=== PATIENT | female | born 1965 | race Caucasian/White ===

== ENCOUNTER → 2017-03-02 | Outpatient (CLI) | payer BC ==
[~2017-03-02] MED LIST: AMPH10TA2 PO; BUSP30TA2 PO; DOXY-300 PO; HYDR-5688 PO; TRAZ100T29 PO; VENL150C PO; VENL75CA PO; ZOLP5TAB PO
== END | disposition home or self-care (01) ==
LOC: C.CPL 07:42
PROVIDERS: ATTEND Surgery
DX: L73.2 Hidradenitis suppurativa (principal)

== ENCOUNTER → 2017-03-02 | Outpatient (CLI) | payer BC ==
--- NOTE | 2017-03-05 12:36 | MAMMOGRAPHY REPORT ---
BILATERAL DIGITAL SCREENING MAMMOGRAM TOMOSYNTHESIS WITH CAD: 03/02/2017 CLINICAL HISTORY: Routine screening. TECHNIQUE: Breast tomosynthesis in addition to standard 2D mammography was performed. Current study was also evaluated with a Computer Aided Detection (CAD) system. COMPARISON: No prior exams were available for comparison. BREAST COMPOSITION: There are scattered areas of fibroglandular density in both breasts. FINDINGS: There is a lobulated circumscribed 6 mm mass within the right 12:00 breast as well as anoth er lobulated circumscribed 11 mm mass within the right 11:30 breast, inferior and slightly lateral to the other mass. Recommend ultrasound for further evaluation. These likely represent cysts. The remainder of both breasts demonstrate no suspicious masses, calcifications, or areas of technical architect ural distortion noted. A few other smaller bilateral round/oval circumscribed benign-appearing hunter s are noted on the tomosynthesis images, which likely represent cysts. IMPRESSION: ACR BI-RADS CATEGORY 0: INCOMPLETE EVALUATION: NEED ADDITIONAL IMAGING EVALUATION Two right breast masses, for which additional imaging evaluation is recommended. The patient will be called to schedule an appointment. Approximately 10% of breast cancers are not detected with mammography. A negative mammographic report should not delay biopsy if a clinically suggestive mass is present. Yoly Kirkland M.D. ah/:03/02/2017 15:44:35 Technical Project Manager: Saniya YODER)(Lucrecia), [facility] letter sent: Addl Imaging 0 BI-RADS Code: ACR BI-RADS Category 0: Incomplete Evaluation: Need Additional Imaging Evaluation
== END | disposition home or self-care (01) ==
LOC: C.MAMM 14:50
PROVIDERS: ATTEND Family Medicine
DX: Z12.31 Encounter for screening mammogram for malignant neoplasm of breast (principal); N63 Unspecified lump in breast

== ENCOUNTER → 2017-03-13 | Day surgery (SDC) | payer BC ==
[2017-02-22 08:47] VITALS: Ht 157.5 cm; Wt 81.8 kg
[~2017-03-13] VITALS: Ht 157.5 cm; Wt 81.8 kg
[~2017-03-13] MED LIST changes: +ATROPINE SULFATE 0.1 MG/ML 5ML SYR IV PRN; +BUPIVACAINE/EPINEPHRINE 0.5% MPF 1:200,000 10 ML VIAL ONE; +CEFAZOLIN 2000 MG/60 ML D5W IV SCH; +DEXAMETHASONE SOD INJ 4 MG/ML VIAL ONE; +EpHEDrine SULFATE INJ 50 MG/ML AMP IV PRN; +FENTANYL CITRATE INJ 50 MCG/1 ML 2 ML VIAL IV PRN; +FENTANYL CITRATE INJ 50 MCG/1 ML 2 ML VIAL ONE; +FLUMAZENIL 0.1 MG/1 ML 10 ML VIAL IV PRN; +HYDROCODONE/ACETAMOPHEN 5/325MG TAB ONE; +HYDROCODONE/ACETAMOPHEN 5/325MG TAB PO PRN; +HYDROmorphone INJ 2 MG/ML SYR/VIAL IV PRN; +KETOROLAC TROMETHAMINE 30 MG/ML VIAL ONE; +LABETALOL HCL IV 5 MG/ML 20ML IV PRN; +LACTATED RINGER'S 1000ML 1,000 ML IV SCH; +LIDOCAINE HCL 2% 2 ML VIAL (20MG/ML) ONE; +MEPERIDINE HCL 25 MG/ML CARP IV PRN; +MIDAZOLAM HCL 1 MG/ML 2ML VIAL ONE; +NALOXONE HCL 0.4 MG/1 ML VIAL/CARP IV PRN; +ONDANSETRON INJ 2 MG/ML 2 ML VIAL IV PRN; +ONDANSETRON INJ 2 MG/ML 2 ML VIAL ONE; +PHENYLEPHRINE 100MCG/ML 5ML SYR IV PRN; +PROPOFOL IV EMULSION 10 MG/ML 20 ML VIAL IV ONE; +SODIUM CHLORIDE 0.9% 1000ML 1,000 ML IV SCH
--- NOTE | 2017-03-13 09:59 | History & Physical Bridge Note ---
H&P Re-Evaluation Bridge Note: I have examined the patient, reviewed the History & Physical and in the interval since the performance of the History & Physical I have noted the following changes of clinical significance: No changes noted
--- NOTE | 2017-03-13 10:17 | Discharge Instructions-SurgCtr ---
Discharge Instructions Date of Service Mar 13, 2017. Visit Reason for Visit: Rt Axilla Hidradenitis Suppurative, Rt Groin Cysts Discharge Discharge Diagnosis / Problem: Rt Axilla Hidradenitis Suppurative, Rt Groin Cysts Discharge Goals Goal(s): Decrease discomfort, Improve function Activity Recommendations Activity Limitations: as noted below Lifting Limitations: no more than 10 pounds Exercise/Sports Limitations: until after follow-up appointment May Resume Sexual Activity: after follow-up appointment Shower/Bathe: tomorrow Anesthesia . Post Anesthesia Instructions: If you have had General Anesthesia or IV Sedation: * Do not drive today. * Resume driving when surgeon permits. * Do not make important decisions or sign legal documents today. * Call surgeon for: 1. Temperature elevations greater than 101 degrees F. 2. Uncontrollable pain. 3. Excessive bleeding. 4. Persistent nausea and vomiting. 5. Medication intolerance (nausea, vomiting or rash). * For nausea and vomiting use only clear liquids such as: tea, soda, bouillon until nausea subsides, then gradually increase diet as tolerated. * If you have any concerns or questions, call your surgeon's office. If physician is unavailable and it is an emergency, call 911 or go to the nearest emergency room. . Instructions / Follow-Up Instructions / Follow-Up Please follow-up with Dr. Fischer in the office in 1-2 weeks. Please call the office at [phone] to make an appointment if you do not have one already. Please call the office with any questions or concerns. Diet Recommendations Home Diet: no limitations, resume previous diet Pending Studies Studies pending at discharge: no Medical Emergencies . Who to Call and When: Medical Emergencies: If at any time you feel your situation is an emergency, please call 911 immediately. . Non-Emergent Contact Non-Emergency issues call your: Primary Care Provider, Surgeon Call Non-Emergent contact if: temperature is above 101.5, your pain is not controlled, wound has increased drainage, wound has increased redness . . "Provider Documentation" section prepared by Nayana Shaw. . [place] Drug Monitoring Program Search Results: patient reviewed within database, no issues identified
--- NOTE | 2017-03-13 11:27 | [facility] Operative Report ---
Operative Report Operative Date Mar 13, 2017. Pre-Operative Diagnosis Right Axilla Hidradenitis, Suppurative; Right Groin Cysts Post-Operative Diagnosis Same Procedure(s) Performed Right Axilla Hydradenitis Excision; Right Groin Soft Tissue Cysts (x3) Excision Surgeon Dr. Sonam Fischer Staff Assistant Surgeon(s) Sonam Giron PA-C Estimated Blood Loss 10 cc Findings hydradenitis right axilla soft tissue cysts x 3 right groin Specimens A. Right Axilla Hiradenitis B. Soft Tissue Cysts, Groin Anesthesia LMA Complication(s) None Disposition Recovery Room / PACU Description of Procedure After informed consent was obtained the patient was taken to the operating suite placed in supine position. Right arm was extended. After successful placement of laryngeal mask airway the right axilla was sterilely prepped and draped in usual fashion. Made an elliptical incision around the visible cysts as well as sinus tracts. A relatively small area. I then used electrocautery to take this down through the soft tissue and into the axillary fat pad. We excised it all in one large piece and handed off. We thoroughly irrigated the wound. I closed the deep layers with 3-0 Vicryl and the skin with 3-0 Prolene in simple interrupted fashion. Marcaine was injected around the area for postoperative analgesia. We cleaned the area and placed benzoin and Steri- Strips as well as gauze for dressing We then took down all the drapes. The patient was placed into a frog-leg position. The groin area had already been shaved and we sterilely prepped and draped in usual fashion. There were 3 separate cysts that the patient had pointed out to me and we've previously marked. One was on the labia majora and 2 were in the right groin itself. We simply used 15 blade scalpel to make elliptical incisions around each cyst and remove them in their entirety using electrocautery. Wounds were all then irrigated and closed with 3-0 Prolene in simple interrupted fashion. Marcaine was also injected around them for postoperative analgesia. They each measured approximately 2 cm in length. Sterile dressing was applied. The patient was awake and expanded and transferred recovery in stable condition I attest to the content of the Intraoperative Record and any orders documented therein. Any exceptions are noted below.
--- NOTE | 2017-03-13 12:03 | Anesthesia Progress Nt - [facility] ---
Anesthesia Post Op Note Date & Time Mar 13, 2017 at 12:02 Vital Signs Pain Intensity: 0 Vital Signs Past 12 Hours Date Time Temp Pulse Resp B/P (MAP) Pulse Ox O2 Delivery O2 Flow Rate FiO2 03/13/17 08:15 36.9 76 16 125/57 (79) 94 Room Air Notes Mental Status: alert / awake / arousable, participated in evaluation Pt Amnestic to Procedure: Yes Nausea / Vomiting: adequately controlled Pain: adequately controlled Airway Patency, RR, SpO2: stable & adequate BP & HR: stable & adequate Hydration State: stable & adequate Anesthetic Complications: no major complications apparent
[2017-03-13 12:41] VITALS: TEMP 36.6
[2017-03-13 13:21] VITALS: BP 153/80; PULSE 89; O2SAT 96
== END | disposition home or self-care (01) ==
LOC: X.SURG 08:01
PROVIDERS: ATTEND Surgery
DX: L72.0 Epidermal cyst (principal); L73.2 Hidradenitis suppurativa; F41.8 Other specified anxiety disorders; M62.81 Muscle weakness (generalized); G47.30 Sleep apnea, unspecified; Z82.49 Family history of ischemic heart disease and other diseases of the circulatory system; R53.83 Other fatigue; Z83.49 Family history of other endocrine, nutritional and metabolic diseases; Z83.3 Family history of diabetes mellitus; Z82.0 Family history of epilepsy and other diseases of the nervous system; Z82.3 Family history of stroke; F17.200 Nicotine dependence, unspecified, uncomplicated

== ENCOUNTER 2017-09-12 13:05 | Emergency (ER) | payer BC, OTHER ==
[~2017-09-12] VITALS: Ht 157.5 cm; Wt 80.5 kg
[~2017-09-12 13:05] MED LIST changes: -ATROPINE SULFATE 0.1 MG/ML 5ML SYR IV PRN; -BUPIVACAINE/EPINEPHRINE 0.5% MPF 1:200,000 10 ML VIAL ONE; -CEFAZOLIN 2000 MG/60 ML D5W IV SCH; -DEXAMETHASONE SOD INJ 4 MG/ML VIAL ONE; -EpHEDrine SULFATE INJ 50 MG/ML AMP IV PRN; -FENTANYL CITRATE INJ 50 MCG/1 ML 2 ML VIAL IV PRN; -FENTANYL CITRATE INJ 50 MCG/1 ML 2 ML VIAL ONE; -FLUMAZENIL 0.1 MG/1 ML 10 ML VIAL IV PRN; -HYDR-5688 PO; -HYDROCODONE/ACETAMOPHEN 5/325MG TAB ONE; -HYDROCODONE/ACETAMOPHEN 5/325MG TAB PO PRN; -HYDROmorphone INJ 2 MG/ML SYR/VIAL IV PRN; -KETOROLAC TROMETHAMINE 30 MG/ML VIAL ONE; -LABETALOL HCL IV 5 MG/ML 20ML IV PRN; -LACTATED RINGER'S 1000ML 1,000 ML IV SCH; -LIDOCAINE HCL 2% 2 ML VIAL (20MG/ML) ONE; -MEPERIDINE HCL 25 MG/ML CARP IV PRN; -MIDAZOLAM HCL 1 MG/ML 2ML VIAL ONE; -NALOXONE HCL 0.4 MG/1 ML VIAL/CARP IV PRN; -ONDANSETRON INJ 2 MG/ML 2 ML VIAL IV PRN; -ONDANSETRON INJ 2 MG/ML 2 ML VIAL ONE; -PHENYLEPHRINE 100MCG/ML 5ML SYR IV PRN; -PROPOFOL IV EMULSION 10 MG/ML 20 ML VIAL IV ONE; -SODIUM CHLORIDE 0.9% 1000ML 1,000 ML IV SCH
[2017-09-12 13:07] VITALS: TEMP 36.7; Ht 157.5 cm; Wt 80.5 kg
[2017-09-12 14:09] VITALS: O2SAT 98
--- NOTE | 2017-09-12 14:18 | DIAGNOSTIC IMAGING REPORT ---
CHEST 2 VIEWS ROUTINE CLINICAL HISTORY: Atypical chest pain. Vomiting. COMPARISON STUDY: No previous studies for comparison. FINDINGS: The cardiac and mediastinal contours are normal. There is no evidence of focal pulmonary consolidation. There is no evidence of failure. No pleural effusions are visualized.[ IMPRESSION: No active disease in the chest. Electronically signed by: Lai Mcdowell M.D. 09/12/2017 2:16 PM Dictated Date/Time: 09/12/2017 2:16 PM
--- NOTE | 2017-09-12 14:21 | EMERGENCY ROOM VISIT NOTE ---
History First contact with patient: 13:11 Chief Complaint: VOMITING Stated Complaint: CHEST PAIN,THROWING UP Nursing Triage Summary: woke up this morning with vomiting while I was laying in bed. having pain in upper abdomen now. for the past 2 weeks I have been waking up with a bile like taste in my mouth. History of Present Illness The patient is a 51 year old female who presents to the Emergency Room with complaints of vomiting and chest discomfort which began last night. The patient states for the past several weeks, she has been experiencing a bile- like taste in her mouth when waking up in the morning. The patient states in the middle of the night last night, she was awoken from sleep with nausea, chest pain, and vomiting. She states she did vomit several times, describes it as bile-like vomiting. The patient states the vomiting did last for a few hours , however she has been feeling better this morning. The patient describes the pain in her chest as pressure, dull, and achy. She continuously states "it feels like a heart attack". When asked, the patient states she has never expressed a heart attack before, but she was reading on the Internet this morning that this is where her symptoms are consistent with. The patient states when she eats, she often feels like food gets stuck in her upper midepigastric region. She states when she is expressing pain she describes it as 7/10. The patient does not note the nausea, vomiting, or chest pain in relation to meal times. She denies any recent illness including diarrhea, chills, constipation, fever, difficulty breathing, or heartburn. The patient states her heart was racing last night when she went to bed. She is a smoker, does smoke one pack per day. The patient does drink alcohol occasionally. She does not have any cardiac history, and only family history of vascular disease is in her father in his 70s, and she states he has had 3 strokes. The patient has taken no medication for her symptoms. She has not performed any activity today, but states she does not notice that the pain is worse with activity. The pain does improve with lying on her left side. Last night for dinner, the patient ate cookies, ice cream, and a banana. The pain does seem to worsen with lying down flat. Review of Systems A complete 10 point review of systems was reviewed with the patient with pertinent positives and negatives as per history of present illness. All else were negative. Past Medical/Surgical History Medical Problems: (1) Anxiety (2) Bronchitis (3) Hematuria (4) Hyperglycemia (5) Myalgia (6) Rabies, need for prophylactic vaccination against Social History Smoking Status: Current Every Day Smoker (1 pack cigarettes per day) Smokeless Tobacco Use: No Alcohol Use: occasionally Drug Use: none Marital Status: Housing Status: lives with family Occupation Status: employed Current/Historical Medications Scheduled Amphetamine-Dextroamphetamine 10MG (Adderall 10MG), 10 MG PO QAM Buspirone Hcl (Buspirone Hcl), 1 TAB PO TID Omeprazole (Prilosec), 40 MG PO DAILY Physical Exam Vital Signs Date Time Temp Pulse Resp B/P (MAP) Pulse Ox O2 Delivery O2 Flow Rate FiO2 09/12/17 15:13 88 09/12/17 15:00 92 18 131/64 96 Room Air 09/12/17 14:11 85 18 124/68 95 Room Air 09/12/17 14:09 98 Room Air 09/12/17 13:07 36.7 97 18 123/55 99 Physical Exam VITALS: Vitals are noted on the nurse's note and reviewed by myself. Vital signs stable. GENERAL: This is a 51-year-old white female, in no acute distress, nondiaphoretic, well-developed well-nourished. SKIN: The skin was without rashes, erythema, edema, or bruising. There is no tenting of the skin. Capillary reflex less than 2 seconds. HEAD: Normocephalic atraumatic. EARS: External auditory canals clear, tympanic membranes pearly jean without erythema or effusion bilaterally. EYES: Pupils equal round and reactive to light and accommodation. Conjunctivae without injection, sclerae without icterus. Extraocular movements intact. NOSE: Patent, turbinates without inflammation or discharge. No sinus tenderness. MOUTH: Mucous membranes moist. Tonsils are not enlarged. Pharynx without erythema or exudate. Uvula midline. Airway patent. Tongue does not deviate. NECK: Supple without nuchal rigidity. No lymphadenopathy. No thyromegaly. Cervical spine is nontender. No JVD. HEART: Regular rate and rhythm without murmurs gallops or rubs. LUNGS: Clear to auscultation bilaterally without wheezes, rales or rhonchi. No dullness to percussion. No retractions or accessory muscle use. ABDOMEN: Positive bowel sounds x 4. Normal tympanic percussion. Tenderness in the left upper quadrant and the patient is lying flat. She does describe a acidic sensation and bile taste in her mouth and pressure of the left upper quadrant. The abdomen is otherwise soft, nontender, without masses or organomegaly. Sadler sign negative. No guarding or rebound tenderness. MUSCULOSKELETAL: No muscle atrophy, erythema, or edema noted. Full range of motion without joint tenderness in all extremities. No tenderness to palpation. Normal gait. Strength 5/5 throughout. NEURO: Patient was alert and oriented to person place and time. Normal sensation to light and sharp touch. Deep tendon reflexes 2+ throughout. No focal neurological deficits. Medical Decision & Procedures ER Provider Diagnostic Interpretation: CHEST 2 VIEWS ROUTINE CLINICAL HISTORY: Atypical chest pain. Vomiting. COMPARISON STUDY: No previous studies for comparison. FINDINGS: The cardiac and mediastinal contours are normal. There is no evidence of focal pulmonary consolidation. There is no evidence of failure. No pleural effusions are visualized.[ IMPRESSION: No active disease in the chest. Electronically signed by: Lai Mcdowell M.D. 09/12/2017 2:16 PM Dictated Date/Time: 09/12/2017 2:16 PM ABDOMEN LIMITED (US) HISTORY: Pain. Nausea. RUQ/epigastric pain, nausea. COMPARISON: None. FINDINGS: Pancreas: The pancreas demonstrates a normal echotexture. Liver: Fatty infiltration Gallbladder: No gallbladder wall thickening. No gallstones. CBD: 4 mm Right kidney: No hydronephrosis. IMPRESSION: Fatty infiltration of liver. Otherwise negative study. The above report was generated using voice recognition software. It may contain grammatical, syntax or spelling errors. Electronically signed by: Arvin Rush M.D. 09/12/2017 2:38 PM Dictated Date/Time: 09/12/2017 2:37 PM CBC shows very mild leukocytosis of 11,000. No anemia or thrombocytopenia. Urinalysis was positive for 1+ bacteria with epithelial cells. I suspect a contaminated specimen. CMP did not show any renal, electrolyte, hepatic abnormalities. Troponin was negative. CKMB was negative. Lipase was normal. Laboratory Results 09/12/17 14:03 Red Blood Count 4.69, Mean Corpuscular Volume 91.3, Mean Corpuscular Hemoglobin 30.3, Mean Corpuscular Hemoglobin Concent 33.2, Mean Platelet Volume 11.5, Neutrophils (%) (Auto) 71.7, Lymphocytes (%) (Auto) 17.0, Monocytes (%) (Auto) 9.9, Eosinophils (%) (Auto) 0.9, Basophils (%) (Auto) 0.1, Neutrophils # (Auto) 8.13, Lymphocytes # (Auto) 1.93, Monocytes # (Auto) 1.12, Eosinophils # (Auto) 0.10, Basophils # (Auto) 0.01 09/12/17 14:03 Test 09/12/17 13:39 09/12/17 14:03 09/12/17 14:07 Creatine Kinase MB Ratio (0-3.0) White Blood Count 11.33 K/uL (4.8-10.8) Red Blood Count 4.69 M/uL (4.2-5.4) Hemoglobin 14.2 g/dL (12.0-16.0) Hematocrit 42.8 % (37-47) Mean Corpuscular Volume 91.3 fL (80-100) Mean Corpuscular Hemoglobin 30.3 pg (25-34) Mean Corpuscular Hemoglobin Concent 33.2 g/dl (32-36) Platelet Count 238 K/uL (130-400) Mean Platelet Volume 11.5 fL (7.4-10.4) Neutrophils (%) (Auto) 71.7 % Lymphocytes (%) (Auto) 17.0 % Monocytes (%) (Auto) 9.9 % Eosinophils (%) (Auto) 0.9 % Basophils (%) (Auto) 0.1 % Neutrophils # (Auto) 8.13 K/uL (1.4-6.5) Lymphocytes # (Auto) 1.93 K/uL (1.2-3.4) Monocytes # (Auto) 1.12 K/uL (0.11-0.59) Eosinophils # (Auto) 0.10 K/uL (0-0.5) Basophils # (Auto) 0.01 K/uL (0-0.2) RDW Standard Deviation 46.3 fL (36.4-46.3) RDW Coefficient of Variation 13.9 % (11.5-14.5) Immature Granulocyte % (Auto) 0.4 % Immature Granulocyte # (Auto) 0.04 K/uL (0.00-0.02) Anion Gap 9.0 mmol/L (3-11) Est Creatinine Clear Calc Drug Dose 64.1 ml/min Estimated GFR () 73.8 Estimated GFR (Non- 63.6 BUN/Creatinine Ratio 12.8 (10-20) Calcium Level 9.6 mg/dl (8.5-10.1) Total Bilirubin 0.3 mg/dl (0.2-1) Aspartate Amino Transf (AST/SGOT) 11 U/L (15-37) Alanine Aminotransferase (ALT/SGPT) 31 U/L (12-78) Alkaline Phosphatase 62 U/L (45-117) Creatine Kinase MB 0.7 ng/ml (0.5-3.6) Troponin I < 0.015 ng/ml (0-0.045) Total Protein 7.4 gm/dl (6.4-8.2) Albumin 4.0 gm/dl (3.4-5.0) Globulin 3.4 gm/dl (2.5-4.0) Albumin/Globulin Ratio 1.2 (0.9-2) Lipase 88 U/L (73-393) Urine Color YELLOW Urine Appearance CLOUDY (CLEAR) Urine pH 7.5 (4.5-7.5) Urine Specific [place] 1.019 (1.000-1.030) Urine Protein NEG (NEG) Urine Glucose (UA) NEG (NEG) Urine Ketones NEG (NEG) Urine Occult Blood NEG (NEG) Urine Nitrite NEG (NEG) Urine Bilirubin NEG (NEG) Urine Urobilinogen NEG (NEG) Urine Leukocyte Esterase NEG (NEG) Urine WBC (Auto) 1-5 /hpf (0-5) Urine RBC (Auto) 0-4 /hpf (0-4) Urine Hyaline Casts (Auto) 1-5 /lpf (0-5) Urine Epithelial Cells (Auto) >30 /lpf (0-5) Urine Bacteria (Auto) 1+ (NEG) Medications Administered Medications (Trade) Dose Ordered Sig/Rowdy Route Start Time Stop Time Status Last Admin Dose Admin Al Hydroxide/Mg Hydroxide (Maalox Susp) 30 ml STK-MED ONCE .ROUTE 09/12/17 15:01 09/12/17 15:02 DC 09/12/17 15:03 30 ML Lidocaine HCl (Viscous Lidocaine 2% Soln) 20 ml STK-MED ONCE .ROUTE 09/12/17 15:01 09/12/17 15:02 DC 09/12/17 15:03 10 ML ECG Indication: abdominal pain, chest pain Rate (beats per minute): 90 Rhythm: normal sinus Findings: no acute ischemic change, no ectopy Change: no significant change ED Course The patient was seen and evaluated as above. IV access was obtained, labs drawn. EKG was performed. Results of all studies were reviewed. I did discuss the case with Dr. Escalera, who is in agreement assessment and plan. I discussed results with the patient and her at bedside. She was given a GI cocktail and did note very mild improvement in her symptoms. The patient is ready for discharge, discharge instructions were reviewed and the patient was discharged home in good condition. Medical Decision Etiologies such as gastritis, GERD, ACS, cardiac etiology, appendicitis, diverticulitis, obstruction, inflammatory bowel disease, renal colic, PUD, biliary pathology, pancreatitis, mesenteric ischemia, aortic pathology, infections, genitourinary, UTI, perforated viscus, as well as others were entertained. This is a 51 year old female patient who presents to the ED today complaining of Chest pain, abdominal pain, nausea, and vomiting. She does not have a cardiac history, but is concerned for cardiac etiology based on her Google search this morning. Her work-up was overall negative for acute cardiac etiology. I suspect a gastritis, reflux component to the patient's symptoms, she is experiencing mild symptoms every morning upon awakening for the past few weeks. The patient also reports a history of globus sensation on occasion. I did encourage the patient to follow up outpatient with her PCP, and recommended possible GI referral for a scope versus swallowing study. The patient's symptoms mildly responded to the GI cocktail, the patient's stomach is empty, and she has had no food this morning. She states she is very hungry, and feels that symptoms will improve with food. The patient will be started on a PPI outpatient, and she doesn't really have an appointment scheduled with her PCP for 2 weeks from now. She will follow up outpatient for possible ongoing management and testing. The patient was encouraged to return to the emergency department for any worsening or changing symptoms. Medication Reconcilliation Current Medication List: was personally reviewed by me Blood Pressure Screening Patient's blood pressure: Normal blood pressure Impression Primary Impression: Acute gastritis Departure Information Dispostion Home / Self-Care Condition GOOD Prescriptions Omeprazole (PRILOSEC) 40 Mg Cap 40 MG PO DAILY for 30 Days, #30 CAP Prov: Sumi Palencia PA-C 09/12/17 Referrals Gurdeep Duke M.D. (PCP) Patient Instructions ED Gastritis, [facility] Additional Instructions You have been treated in the Emergency Department your Abdominal/Chest Pain. Laboratory results and imaging studies have ruled out any emergent causes for your abdominal pain which would warrant admission or surgery. For pain control, you can use the following hajk-zid-vzljtwt medicines (if >12 yo): Ibuprofen(Motrin, Advil) may be used for fever or pain. Use 600mg every six hours as needed. Take with food. Avoid using more than 2400mg in a 24 hour period. Do not use 2400mg per day for more than three consecutive days without physician direction. Prolonged inappropriate use can lead to stomach upset or ulcers. This medication can worsen acid production in the stomach, so if you must take it, be sure to take it with food to help avoid these side effects. (AND/OR) Acetaminophen(Tylenol) may be used for fever or pain. Use 1000mg every six hours as needed. Avoid using more than 3000mg in a 24 hour period. You were given a prescription for Omeprazole 40mg daily for reflux symptoms. Take this medication prior to the first meal of the day. Please take it daily until follow-up and further direction by your PCP. Drink plenty of water and stay well hydrated. Be sure to be eating frequently. Avoid high-acidic foods or foods which may worsen reflux. These include red sauce, chocolate, alcohol, and tobacco. As discussed, cigarette smoking and anxiety can worsen reflux/gastritis symptoms. As with any trip to the Emergency Department, you should follow-up with your Primary Care Provider from today's visit. Please follow-up with your PCP at your regularly scheduled appointment later this month. Return to the emergency department if your symptoms persist despite treatment plan outlined above or if the following symptoms occur: increased fevers, chills , worsening nausea/vomiting, blood in your stool or urine. Problem Qualifiers Primary Impression: Acute gastritis Gastritis type: other gastritis Gastritis bleeding: without bleeding Qualified Codes: K29.00 - Acute gastritis without bleeding
[2017-09-12 14:22] LABS: BASO % 0.1 %; BASO ABS # 0.01 K/uL (0-0.2); EOS % 0.9 %; HEMATOCRIT 42.8 % (37-47); HEMOGLOBIN 14.2 g/dL (12.0-16.0); IG# 0.04 K/uL (0.00-0.02); LYMPH ABS # 1.93 K/uL (1.2-3.4); MEAN CELL VOLUME 91.3 fL (80-100); MEAN CORPUSCULAR HEMOGLOBIN 30.3 pg (25-34); MEAN CORPUSCULAR HGB CONC 33.2 g/dl (32-36); MEAN PLATELET VOLUME 11.5 fL (7.4-10.4); MONO % 9.9 %; MONO ABS # 1.12 K/uL (0.11-0.59); NEUT % 71.7 %; NEUT ABS # 8.13 K/uL (1.4-6.5); PLATELET COUNT 238 K/uL (130-400); RED CELL DISTRIBUTION WIDTH CV 13.9 % (11.5-14.5); RED CELL DISTRIBUTION WIDTH SD 46.3 fL (36.4-46.3); WHITE BLOOD COUNT 11.33 K/uL (4.8-10.8)
--- NOTE | 2017-09-12 14:39 | DIAGNOSTIC IMAGING REPORT ---
ABDOMEN LIMITED (US) HISTORY: Pain. Nausea. RUQ/epigastric pain, nausea. COMPARISON: None. FINDINGS: Pancreas: The pancreas demonstrates a normal echotexture. Liver: Fatty infiltration Gallbladder: No gallbladder wall thickening. No gallstones. CBD: 4 mm Right kidney: No hydronephrosis. IMPRESSION: Fatty infiltration of liver. Otherwise negative study. The above report was generated using voice recognition software. It may contain grammatical, syntax or spelling errors. Electronically signed by: Arvin Rush M.D. 09/12/2017 2:38 PM Dictated Date/Time: 09/12/2017 2:37 PM
[2017-09-12 14:40] LABS: ALT/SGPT 31 U/L (12-78); BLOOD UREA NITROGEN 13 mg/dl (7-18); CALCIUM 9.6 mg/dl (8.5-10.1); CARBON DIOXIDE 25 mmol/L (21-32); CREATININE 1.02 mg/dl (0.60-1.20); GLUCOSE 97 mg/dl (70-99); LIPASE 88 U/L (73-393); POTASSIUM 3.7 mmol/L (3.5-5.1); SODIUM 138 mmol/L (136-145)
[2017-09-12 14:46] LABS: ALKALINE PHOSPHATASE 62 U/L (45-117); AST/SGOT 11 U/L (15-37); CKMB 0.7 ng/ml (0.5-3.6); TOTAL PROTEIN 7.4 gm/dl (6.4-8.2)
[2017-09-12] MEDS ORDERED: GI COCKTAIL PO STA (14:56)
[2017-09-12] MEDS ORDERED: LIDOCAINE HCL 2% VISC SOLN 20 ML UDC ONE (15:01)
[2017-09-12] MEDS ORDERED: ALUMINUM/MAGNESIUM SUSP 30 ML UDC ONE (15:01)
[2017-09-12] MEDS ORDERED: OMEP40CA41 PO (15:33)
[2017-09-12 15:40] VITALS: BP 124/69; PULSE 95; O2SAT 94
== END 2017-09-12 15:46 | disposition home or self-care (01) ==
LOC: C.EDB 13:07
DX: K29.00 Acute gastritis without bleeding (principal); F17.210 Nicotine dependence, cigarettes, uncomplicated; F41.9 Anxiety disorder, unspecified; Z82.49 Family history of ischemic heart disease and other diseases of the circulatory system; Z82.3 Family history of stroke

== ENCOUNTER → 2018-03-15 | Outpatient (CLI) | payer OTHER ==
[~2018-03-15] MED LIST changes: -DOXY-300 PO; -TRAZ100T29 PO; -VENL150C PO; -VENL75CA PO; -ZOLP5TAB PO
--- NOTE | 2018-03-18 08:12 | MAMMOGRAPHY REPORT ---
BILATERAL DIGITAL DIAGNOSTIC MAMMOGRAM TOMOSYNTHESIS WITH CAD: 03/15/2018 CLINICAL HISTORY: Short interval follow-up of right breast masses. The patient reports no new lumps or other complaints. TECHNIQUE: Breast tomosynthesis in addition to standard 2D mammography was performed. Current study was also evaluated with a Computer Aided Detection (CAD) system. Bilateral CC and MLO 2D and tomosyn thesis images were obtained. COMPARISON: Comparison is made to exams dated: 03/02/2017 mammogram and 07/09/2017 ultrasound - [facility]. BREAST COMPOSITION: There are scattered areas of fibroglandular density in both breasts. FINDINGS: The previously described circumscribed mass within the right 12:00 breast has decreased in size compared to the February 2017 exam, currently measuring 5 mm, previously measuring 7 mm when measuri ng with a similar technique. Given the interval decrease in size, the mass is benign and compatible with a cyst as seen on the prior July 2017 ultrasound exam. The other mass seen in the right rolo ast at approximately 8:00 is decreased and no longer clearly evident and is also therefore considered benign. The remainder of both breasts are stable compared to prior exams, without suspicious masses, calcific ations, or areas of architectural distortion noted. IMPRESSION: ACR BI-RADS CATEGORY 2: BENIGN The two previously seen right breast masses have decreased in size and are therefore benign and cece tible with cysts. There is no mammographic evidence of malignancy in either breast. A 1 year screeni mammogram is recommended. The patient has been verbally notified of the results. Approximately 10% of breast cancers are not detected with mammography. A negative mammographic report should not delay biopsy if a clinically suggestive mass is present. Yoly Kirkland M.D. /:03/15/2018 14:32:35 Health Commissioner: Licha KUMAR(Jose)(M), [facility] letter sent: Normal 1/2 BI-RADS Code: ACR BI-RADS Category 2: Benign
== END | disposition home or self-care (01) ==
LOC: C.MAMM 13:58
PROVIDERS: ATTEND Family Medicine
DX: R92.8 Other abnormal and inconclusive findings on diagnostic imaging of breast (principal); N63.10 Unspecified lump in the right breast, unspecified quadrant

== ENCOUNTER 2020-08-04 14:00 | Observation (INO) ==
--- NOTE | 2020-08-04 15:46 | Emergency Department Note ---
History of Present Illness General Chief complaint: Neuro Symptoms/Deficit Stated complaint: SLURRED SPEECH,TROUBLE WALKING Time Seen by Provider: 08/04/20 15:21 Source: patient History of Present Illness Provider complaint: Left leg weakness Onset (ago): day(s) Location: lower extremity and left Radiation: non-radiation Severity: mild Pain Consistency: + constant Maximum Pain Intensity: 0 Quality: + other (Weakness) Relieved By: + none Associated symptoms: no chest pain, no cough, no fever/chills, no headaches, no malaise, no nausea/vomiting and no shortness of breath This is a 54-year-old female who presents with left leg weakness starting 3 days ago. The patient states that she is having difficulty walking. She feels that she has weakness in general but her left leg is what seems to be the worst. She states that when she walks she is walking like a baby and cannot walk very quickly. She does feel her symptoms are improving but her family noticed that she had slurring of her speech yesterday and advised her to come in for evaluation today. The patient does not notice any slurring to her speech. She denies any numbness in her body. She has no trouble swallowing. She denies headache, chest pain, shortness of breath, cough or cold symptoms, fever or loss of taste or smell. She states that her hearing is diminished but states that she has had problems with both of her ears since she was a teenager. She has been on and off on steroids and cream for her ears for swelling. She noticed over the past week her ears have gotten swollen. Her hearing is diminished but she does not have pain to the ears. She states it feels itchy. She also states that water taste bad. She does state that she was at a a week and a half ago and 20 people there tested positive for COVID-19. Neither she or any of her family members who live in her house have experienced any symptoms. She states that last week on Sunday she went to bed and she did not get out of bed until Sunday. She was feeling tired and slept most of the time. She occasionally got up to drink and go to the bathroom but did not eat anything. She states she is not depressed but she is on medications for depression. Home Medications Medication Instructions Recorded Confirmed Type aripiprazole [Abilify] 15 mg PO QPM 08/04/20 08/04/20 History dextroamphetamine-amphetamine 30 mg PO BID 08/04/20 08/04/20 History [Adderall] fluvoxamine 200 mg PO HS 08/04/20 08/04/20 History lorazepam [Ativan] 2 mg PO .BID UD PRN 08/04/20 08/04/20 History trazodone 200 mg PO HS 08/04/20 08/04/20 History zolpidem [Ambien] 15 mg PO HS 08/04/20 08/04/20 History Allergies Allergy/AdvReac Type Severity Reaction Status Date / Time bacitracin Allergy Mild Rash, Itch Verified 08/04/20 18:39 neomycin Allergy Mild Rash, Itch Verified 08/04/20 18:39 polymyxin B Allergy Mild Rash, Itch Verified 08/04/20 18:39 Past Med/Surg History Medical History Depression Social History Smoking Status: Current some day smoker Feels Safe at Home: Yes Review of Systems See HPI for pertinent positives & negatives. and A total of 10 systems reviewed and were otherwise negative Physical Exam Vital Signs Vital Signs - 24 hr 08/04/20 14:06 08/04/20 15:12 08/04/20 15:15 Temperature 36.5 C Temperature Source Oral Pulse Rate 63 60 Pulse Rate from SpO2 Sensor 60 Respiratory Rate 18 19 Blood Pressure 156/84 H 141/85 H Blood Pressure Mean 108 97 Pulse Oximetry 95 97 Oxygen Delivery Method Room Air Room Air Sepsis Recent Fever Within 48 Hours No Sepsis New/Unexplained Change in Mental Status No Sepsis Action Taken by Nursing No Action Required 08/04/20 15:22 08/04/20 15:30 08/04/20 15:31 Temperature Temperature Source Pulse Rate 60 57 L 62 Pulse Rate from SpO2 Sensor 59 L 55 L Respiratory Rate 18 12 12 Blood Pressure 133/85 Blood Pressure Mean 92 Pulse Oximetry 97 98 Oxygen Delivery Method Sepsis Recent Fever Within 48 Hours Sepsis New/Unexplained Change in Mental Status Sepsis Action Taken by Nursing 08/04/20 16:22 08/04/20 16:23 08/04/20 16:24 Temperature Temperature Source Pulse Rate 57 L 56 L 52 L Pulse Rate from SpO2 Sensor Respiratory Rate 13 18 15 Blood Pressure 133/79 Blood Pressure Mean 87 Pulse Oximetry Oxygen Delivery Method Sepsis Recent Fever Within 48 Hours Sepsis New/Unexplained Change in Mental Status Sepsis Action Taken by Nursing 08/04/20 16:30 08/04/20 16:31 08/04/20 17:00 Temperature Temperature Source Pulse Rate 50 L 56 L 56 L Pulse Rate from SpO2 Sensor Respiratory Rate 16 17 13 Blood Pressure 114/75 Blood Pressure Mean 82 Pulse Oximetry Oxygen Delivery Method Sepsis Recent Fever Within 48 Hours Sepsis New/Unexplained Change in Mental Status Sepsis Action Taken by Nursing 08/04/20 17:01 08/04/20 17:30 08/04/20 17:31 Temperature Temperature Source Pulse Rate 57 L 57 L 58 L Pulse Rate from SpO2 Sensor Respiratory Rate 21 13 13 Blood Pressure 134/65 103/72 Blood Pressure Mean 92 81 Pulse Oximetry 95 Oxygen Delivery Method Room Air Sepsis Recent Fever Within 48 Hours Sepsis New/Unexplained Change in Mental Status Sepsis Action Taken by Nursing 08/04/20 18:00 08/04/20 18:30 08/04/20 18:31 Temperature Temperature Source Pulse Rate 48 L 59 L 63 Pulse Rate from SpO2 Sensor 45 L 57 L 59 L Respiratory Rate 16 16 16 Blood Pressure 137/73 Blood Pressure Mean 80 Pulse Oximetry 98 95 Oxygen Delivery Method Sepsis Recent Fever Within 48 Hours Sepsis New/Unexplained Change in Mental Status Sepsis Action Taken by Nursing 08/04/20 19:00 08/04/20 19:30 08/04/20 20:00 Temperature Temperature Source Pulse Rate 54 L 57 L 54 L Pulse Rate from SpO2 Sensor 52 L 58 L 54 L Respiratory Rate 13 16 14 Blood Pressure 143/81 H 135/76 138/75 Blood Pressure Mean 93 91 94 Pulse Oximetry 94 96 93 Oxygen Delivery Method Sepsis Recent Fever Within 48 Hours Sepsis New/Unexplained Change in Mental Status Sepsis Action Taken by Nursing 08/04/20 20:01 08/04/20 20:30 08/04/20 20:36 Temperature Temperature Source Pulse Rate 57 L 57 L 55 L Pulse Rate from SpO2 Sensor 57 L 58 L Respiratory Rate 19 13 15 Blood Pressure 162/81 H Blood Pressure Mean 97 Pulse Oximetry 96 96 Oxygen Delivery Method Sepsis Recent Fever Within 48 Hours Sepsis New/Unexplained Change in Mental Status Sepsis Action Taken by Nursing 08/04/20 20:37 08/04/20 21:00 12/02/20 21:01 Temperature Temperature Source Pulse Rate 70 56 L 51 L Pulse Rate from SpO2 Sensor 57 L 51 L Respiratory Rate 24 18 15 Blood Pressure 139/73 Blood Pressure Mean 83 Pulse Oximetry 97 96 Oxygen Delivery Method Sepsis Recent Fever Within 48 Hours Sepsis New/Unexplained Change in Mental Status Sepsis Action Taken by Nursing 08/04/20 21:02 08/04/20 21:30 08/04/20 21:35 Temperature Temperature Source Pulse Rate 53 L 59 L 59 L Pulse Rate from SpO2 Sensor 52 L 57 L Respiratory Rate 18 18 15 Blood Pressure 142/70 H Blood Pressure Mean 91 Pulse Oximetry 97 98 Oxygen Delivery Method Sepsis Recent Fever Within 48 Hours Sepsis New/Unexplained Change in Mental Status Sepsis Action Taken by Nursing 08/04/20 22:00 08/04/20 22:01 Temperature Temperature Source Pulse Rate 52 L 55 L Pulse Rate from SpO2 Sensor 54 L 53 L Respiratory Rate 18 14 Blood Pressure 115/70 Blood Pressure Mean 97 Pulse Oximetry 90 91 Oxygen Delivery Method Sepsis Recent Fever Within 48 Hours Sepsis New/Unexplained Change in Mental Status Sepsis Action Taken by Nursing Constitutional: Vital signs reviewed. Eyes: Pupils are equal round reactive to light. Conjunctiva are noninjected. ENT: Pharynx is clear without erythema or exudate. Mucous membranes are moist. Swelling to both pinna and bilateral external auditory canals. Erythema to both pinna with mild tenderness. No mastoid tenderness. Whitish discharge noted in both external auditory canals. No pain elicited with movement of the tragus or insertion of the otoscope. neck supple without meningeal signs. Respiratory: Clear to auscultation bilaterally. Breath sounds are equal b ilaterally. Cardiovascular: Regular rate and rhythm. No rubs or gallops. GI: Soft, nondistended and nontender. Bowel sounds are present. Musculoskeletal: No peripheral edema. No lower extremity tenderness. Integumentary: No cyanosis. or jaundice. Neurologic: The patient is awake and alert. Cranial nerves II-XII are intact. Motor strength is 5 out of 5 all extremities except the left lower extremity which is 4 out of 5 in strength. Sensation is intact to light touch all extremities. Normal speech. No pronator drift. No limb ataxia. Gait is extremely slow. Psychiatric: Normal affect. Not anxious appearing. Course Administered Medications Discontinued Medications Piperacillin Sod/Tazobactam Sod (Zosyn) 4.5 gm in 120 mls @ 240 mls/hr IV NOW ONE Stop: 12/02/20 17:46 Last Infusion: 08/04/20 18:16 Dose: 0 mls/hr Documented by: [id number] Admin: 08/04/20 17:44 Dose: 240 mls/hr Documented by: [id number] Medical Decision Making Differential Diagnosis Intracranial mass, CVA, TIA, otitis externa, UTI Medical Records Attestation: I reviewed the patient's medical records. I did perform a limited focused review of portions of the patient's old chart on the electronic medical record. The patient has had no recent pertinent visits to this hospital. Laboratory Data Attestation: I reviewed the patient's lab results. Result diagrams: 08/04/20 15:10 08/04/20 15:10 Lab Results 08/04/20 08/04/20 08/04/20 Range/Units 15:10 15:10 15:10 WBC 6.50 (4.8-10.8) K/uL RBC 5.11 (4.2-5.4) M/uL Hgb 15.5 (12.0-16.0) g/dL Hct 47.9 H (37-47) % MCV 93.7 (80-100) fL MCH 30.3 (25-34) pg MCHC 32.4 (32-36) g/dL RDW Std Deviation 45.4 (36.4-46.3) fL RDW Coeff of Lydia 13.2 (11.5-14.5) % Plt Count 201 (130-400) K/uL MPV 11.5 H (7.4-10.4) fL Immature Gran % (Auto) 0.3 % Neut % (Auto) 45.4 % Lymph % (Auto) 43.1 % [place] % (Auto) 7.8 % Eos % (Auto) 3.1 % Baso % (Auto) 0.3 % Neut # (Auto) 2.95 (1.4-6.5) K/uL Lymph # (Auto) 2.80 (1.2-3.4) K/uL [place] # (Auto) 0.51 (0.11-0.59) K/uL Eos # (Auto) 0.20 (0-0.5) K/uL Baso # (Auto) 0.02 (0-0.2) K/uL Immature Gran # (Auto) 0.02 (0.00-0.02) K/uL ESR (0-21) mm/hr PT 10.7 (9.0-12.0) Seconds INR 1.0 (0.9-1.1) APTT 27.5 (21.0-31.0) Seconds PTT Ratio 1.0 Sodium 139 (136-145) mmol/L Potassium 4.2 (3.5-5.1) mmol/L Chloride 106 (98-107) mmol/L Carbon Dioxide 31 (21-32) mmol/L Anion Gap 2.0 L (3-11) BUN 24 H (7-18) mg/dl Creatinine 0.97 (0.6-1.2) mg/dl Est Cr Clr Drug Dosing 67.5 ml/min Est GFR ( Amer) 76.7 Est GFR (Non-Af Amer) 66.2 BUN/Creatinine Ratio 24.8 H (10-20) Glucose 91 (70-99) mg/dl Calcium 8.7 (8.5-10.1) mg/dl Magnesium 2.3 (1.8-2.4) mg/dl Total Bilirubin 0.2 (0.2-1) mg/dl AST 23 (15-37) U/L ALT 47 (12-78) U/L Alkaline Phosphatase 68 (45-117) U/L Troponin I < 0.015 (0-0.045) ng/ml C-Reactive Protein (0-0.29) mg/dl Total Protein 7.6 (6.4-8.2) gm/dl Albumin 4.0 (3.4-5.0) gm/dl Globulin 3.6 (2.5-4.0) gm/dl Albumin/Globulin Ratio 1.1 (0.9-2) Urine Color Urine Appearance (Clear) Urine pH (4.5-7.5) Ur Specific [place] (1.000-1.030) Urine Protein (Negative) Urine Glucose (UA) (Negative) Urine Ketones (Negative) Urine Blood (Negative) Urine Nitrite (Negative) Urine Bilirubin (Negative) Urine Urobilinogen (Negative) Ur Leukocyte Esterase (Negative) Urine WBC (Auto) (0-5) /hpf Urine RBC (Auto) (0-4) /hpf U Hyaline Cast (Auto) (0-5) /lpf U Epithel Cells (Auto) (0-5) /lpf Urine Bacteria (Auto) (Negative) COVID-19 Eval Order SARS-CoV-2, RNA, NAAT (NEGATIVE) SARS-CoV-2 Ag (Rapid) (Negative) 08/04/20 08/04/20 08/04/20 Range/Units 15:10 15:10 16:00 WBC (4.8-10.8) K/uL RBC (4.2-5.4) M/uL Hgb (12.0-16.0) g/dL Hct (37-47) % MCV (80-100) fL MCH (25-34) pg MCHC (32-36) g/dL RDW Std Deviation (36.4-46.3) fL RDW Coeff of Lydia (11.5-14.5) % Plt Count (130-400) K/uL MPV (7.4-10.4) fL Immature Gran % (Auto) % Neut % (Auto) % Lymph % (Auto) % [place] % (Auto) % Eos % (Auto) % Baso % (Auto) % Neut # (Auto) (1.4-6.5) K/uL Lymph # (Auto) (1.2-3.4) K/uL [place] # (Auto) (0.11-0.59) K/uL Eos # (Auto) (0-0.5) K/uL Baso # (Auto) (0-0.2) K/uL Immature Gran # (Auto) (0.00-0.02) K/uL ESR 4 (0-21) mm/hr PT (9.0-12.0) Seconds INR (0.9-1.1) APTT (21.0-31.0) Seconds PTT Ratio Sodium (136-145) mmol/L Potassium (3.5-5.1) mmol/L Chloride (98-107) mmol/L Carbon Dioxide (21-32) mmol/L Anion Gap (3-11) BUN (7-18) mg/dl Creatinine (0.6-1.2) mg/dl Est Cr Clr Drug Dosing ml/min Est GFR ( Amer) Est GFR (Non-Af Amer) BUN/Creatinine Ratio (10-20) Glucose (70-99) mg/dl Calcium (8.5-10.1) mg/dl Magnesium (1.8-2.4) mg/dl Total Bilirubin (0.2-1) mg/dl AST (15-37) U/L ALT (12-78) U/L Alkaline Phosphatase (45-117) U/L Troponin I (0-0.045) ng/ml C-Reactive Protein < 0.29 (0-0.29) mg/dl Total Protein (6.4-8.2) gm/dl Albumin (3.4-5.0) gm/dl Globulin (2.5-4.0) gm/dl Albumin/Globulin Ratio (0.9-2) Urine Color Yellow Urine Appearance Clear (Clear) Urine pH 5.0 (4.5-7.5) Ur Specific [place] 1.023 (1.000-1.030) Urine Protein Negative (Negative) Urine Glucose (UA) Negative (Negative) Urine Ketones Negative (Negative) Urine Blood Trace H (Negative) Urine Nitrite Negative (Negative) Urine Bilirubin Negative (Negative) Urine Urobilinogen Negative (Negative) Ur Leukocyte Esterase Negative (Negative) Urine WBC (Auto) 1-5 (0-5) /hpf Urine RBC (Auto) 0-4 (0-4) /hpf U Hyaline Cast (Auto) 1-5 (0-5) /lpf U Epithel Cells (Auto) >30 H (0-5) /lpf Urine Bacteria (Auto) Negative (Negative) COVID-19 Eval Order SARS-CoV-2, RNA, NAAT (NEGATIVE) SARS-CoV-2 Ag (Rapid) (Negative) 08/04/20 08/04/20 08/04/20 Range/Units 18:06 20:32 20:32 WBC (4.8-10.8) K/uL RBC (4.2-5.4) M/uL Hgb (12.0-16.0) g/dL Hct (37-47) % MCV (80-100) fL MCH (25-34) pg MCHC (32-36) g/dL RDW Std Deviation (36.4-46.3) fL RDW Coeff of Lydia (11.5-14.5) % Plt Count (130-400) K/uL MPV (7.4-10.4) fL Immature Gran % (Auto) % Neut % (Auto) % Lymph % (Auto) % [place] % (Auto) % Eos % (Auto) % Baso % (Auto) % Neut # (Auto) (1.4-6.5) K/uL Lymph # (Auto) (1.2-3.4) K/uL [place] # (Auto) (0.11-0.59) K/uL Eos # (Auto) (0-0.5) K/uL Baso # (Auto) (0-0.2) K/uL Immature Gran # (Auto) (0.00-0.02) K/uL ESR (0-21) mm/hr PT (9.0-12.0) Seconds INR (0.9-1.1) APTT (21.0-31.0) Seconds PTT Ratio Sodium (136-145) mmol/L Potassium (3.5-5.1) mmol/L Chloride (98-107) mmol/L Carbon Dioxide (21-32) mmol/L Anion Gap (3-11) BUN (7-18) mg/dl Creatinine (0.6-1.2) mg/dl Est Cr Clr Drug Dosing ml/min Est GFR ( Amer) Est GFR (Non-Af Amer) BUN/Creatinine Ratio (10-20) Glucose (70-99) mg/dl Calcium (8.5-10.1) mg/dl Magnesium (1.8-2.4) mg/dl Total Bilirubin (0.2-1) mg/dl AST (15-37) U/L ALT (12-78) U/L Alkaline Phosphatase (45-117) U/L Troponin I (0-0.045) ng/ml C-Reactive Protein (0-0.29) mg/dl Total Protein (6.4-8.2) gm/dl Albumin (3.4-5.0) gm/dl Globulin (2.5-4.0) gm/dl Albumin/Globulin Ratio (0.9-2) Urine Color Urine Appearance (Clear) Urine pH (4.5-7.5) Ur Specific [place] (1.000-1.030) Urine Protein (Negative) Urine Glucose (UA) (Negative) Urine Ketones (Negative) Urine Blood (Negative) Urine Nitrite (Negative) Urine Bilirubin (Negative) Urine Urobilinogen (Negative) Ur Leukocyte Esterase (Negative) Urine WBC (Auto) (0-5) /hpf Urine RBC (Auto) (0-4) /hpf U Hyaline Cast (Auto) (0-5) /lpf U Epithel Cells (Auto) (0-5) /lpf Urine Bacteria (Auto) (Negative) COVID-19 Eval Order Covid19 [facility] SARS-CoV-2, RNA, NAAT NEGATIVE (NEGATIVE) SARS-CoV-2 Ag (Rapid) Negative (Negative) Imaging Data Radiologist's Impression: CT head/brain wo con CLINICAL HISTORY: 54 years-old Female with disequilibrium/left leg weakness eval for cva. Acute strokelike symptoms TECHNIQUE: Multiple axial CT images of the head were obtained without contrast. A dose lowering technique was utilized adhering to the principles of ALARA. CT DOSE: 690.05 mGycm COMPARISON: CT temporal bone study of same day, head CT 03/29/2015. FINDINGS: No acute intracranial hemorrhage, midline shift, intracranial mass, hydrocephalus, territorial ischemia or abnormal extra-axial collection. The calvarium is intact. Bilateral mastoid effusions. Fluid is noted within the bilateral middle ear cavities. The paranasal sinuses are generally clear. Right mary bullosa. Mild soft tissue prominence of the bilateral external auditory canal distributions. Orbits are within normal limits. IMPRESSION: 1. No acute intracranial abnormality. 2. Bilateral mastoid effusions. ACT 112: Negative or not required by law. The above report was generated using voice recognition software. It may contain grammatical, syntax or spelling errors. Electronically signed by: Hugo Quinn M.D. 08/04/2020 4:[address] SCAN OF THE TEMPORAL BONES WITHOUT IV CONTRAST CLINICAL HISTORY: Disequilibrium. COMPARISON STUDY: CT of the brain performed concurrently on 08/04/2020. MRI of the brain dated 03/30/2015. TECHNIQUE: High-resolution CT scan of the temporal bones is performed. Images are reviewed in the axial, sagittal, and coronal planes. IV contrast was not ad ministered for this examination. A dose lowering technique was utilized adhering to the principles of ALARA. CT DOSE: 336.39 mGycm FINDINGS: There is no evidence of temporal bone fracture. There are moderate to large bilateral mastoid effusions. The middle ear structures are normal as visualized. The ossicles are normal. The scutum are sharp bilaterally. There is no evidence of dehiscence of the tegmen tympani. There is no evidence of otosclerosis. There is marked soft tissue thickening identified along the course of the external auditory canal bilaterally with intraluminal debris. This exte nds to the tympanic membrane bilaterally. There is mild bulging of the tympanic membrane bilaterally. Soft tissue infiltration is also suggested involving the ear bilaterally. The visualized paranasal sinuses are clear. The calvarium is intact as visualized. The imaged brain parenchyma at the skull base is within normal limits. Degenerative change is noted involving the temporomandibular joints. IMPRESSION: 1. Moderate to large bilateral mastoid effusions. 2. The middle ear structures are normal as imaged. 3. There is marked soft tissue thickening involving the external auditory canals bilaterally with significant intraluminal debris. This is nearly occlusive on the right. Correlate clinically for evidence of otitis externa and possibly impacted cerumen. 4. Soft tissue infiltration is also suggested involving the ear bilaterally. ACT 112: Negative or not required by law. Dictated: 08/04/2020 4:15 PM Transcribed: 08/04/2020 4:56 PM Flores [id number] [facility] ECG Data Attestation: I personally reviewed and interpreted this ECG as follows: Indication: + other (Stroke symptoms) Rate (beats per minute): 55 Rhythm: + sinus bradycardia ECG [place]: + Normal ECG ST segments: no ST elevation ECG Findings: no PVCs MDM Narrative I did evaluate the patient as noted above. She is presenting with disequilibrium and left leg weakness. On examination she has some objective weakness to the left leg compared to the right and she has signs of perichondritis to both years. IV access was established. I did place an order for continuous cardiac monitoring. The monitor showed normal sinus rhythm at a rate of 60 bpm. I did order and personally review the patient's 12-lead EKG as described above. She has bradycardia without acute ischemic changes. I did order and review the patient's blood work as noted in the electronic medical record. She is not anemic. She has no leukocytosis. Electrolytes are unremarkable. I did order a CT of head and temporal bones. I did review the images myself as well as the radiology report as described above. She has inflammation to both pinna and soft tissue thickening of both external auditory canals with mastoid effusions bilaterally. I did treat her with Zosyn IV. The re is no evidence of acute intracranial abnormality. I did discuss the test results with her. I did recommend hospitalization for further evaluation and care as well as MRI of the brain. I did discuss case with the hospitalist and major case detective. Impression & Plan Left leg weakness, Ataxia, Perichondritis Discharge Plan Visit Data Chief Complaint: Neuro Symptoms/Deficit Stated Complaint: SLURRED SPEECH,TROUBLE WALKING ED Provider: Domingo Dan Discharge Problem: Left leg weakness, Ataxia, Perichondritis Patient Disposition: Being Evaluated by Hospitalist Forms Stand Alone Forms: My [facility] Prescriptions Prescriptions: No Action dextroamphetamine-amphetamine [Adderall] 30 mg tablet 30 mg PO BID RF: 0 lorazepam [Ativan] 2 mg tablet 2 mg PO .BID UD PRN (Reason: Anxiety) RF: 0 fluvoxamine 100 mg tablet 200 mg PO HS RF: 0 zolpidem [Ambien] 10 mg tablet 15 mg PO HS RF: 0 aripiprazole [Abilify] 15 mg tablet 15 mg PO QPM RF: 0 trazodone 100 mg tablet 200 mg PO HS RF: 0 Referrals Referrals: Gurdeep Duke MD [Primary Care Provider] -
[2020-08-04 16:03] LABS: Basophils # (auto) 0.02 K/uL (0-0.2); Basophils % (auto) 0.3 %; Eosinophils % (auto) 3.1 %; Hematocrit (blood only) 47.9 % (37-47); Hemoglobin 15.5 g/dL (12.0-16.0); Immature Granulocytes # (auto) 0.02 K/uL (0.00-0.02); Immature Granulocytes % (auto) 0.3 %; Lymphocytes % (auto) 43.1 %; Mean Corpuscular Hemoglobin 30.3 pg (25-34); Mean Corpuscular Hgb Conc 32.4 g/dL (32-36); Mean Corpuscular Volume 93.7 fL (80-100); Mean Platelet Volume 11.5 fL (7.4-10.4); Monocytes # (auto) 0.51 K/uL (0.11-0.59); Monocytes % (auto) 7.8 %; Neutrophils # (auto) 2.95 K/uL (1.4-6.5); Neutrophils % (auto) 45.4 %; Platelet Count 201 K/uL (130-400); RDW Coefficient of Variation 13.2 % (11.5-14.5); RDW Standard Deviation 45.4 fL (36.4-46.3); Red Blood Count 5.11 M/uL (4.2-5.4)
[2020-08-04 16:12] LABS: Alanine Aminotransferase 47 U/L (12-78); Aspartate Aminotransferase 23 U/L (15-37); BUN Creatinine Ratio 24.8 (10-20); Blood Urea Nitrogen 24 mg/dl (7-18); Calcium 8.7 mg/dl (8.5-10.1); Carbon Dioxide 31 mmol/L (21-32); Chloride 106 mmol/L (98-107); Creatinine Clr Calc Pharmacy 67.5 ml/min; Est GFR (African American) 76.7; Est GFR (Non-African American) 66.2; Glucose 91 mg/dl (70-99); Magnesium 2.3 mg/dl (1.8-2.4); Potassium 4.2 mmol/L (3.5-5.1); Sodium 139 mmol/L (136-145)
[2020-08-04 16:14] LABS: Partial Thromboplastin Time 27.5 Seconds (21.0-31.0); Prothrombin Time 10.7 Seconds (9.0-12.0)
[2020-08-04 16:16] LABS: Albumin Globulin Ratio 1.1 (0.9-2); Alkaline Phosphatase 68 U/L (45-117); Bilirubin,Total 0.2 mg/dl (0.2-1); Globulin 3.6 gm/dl (2.5-4.0); Total Protein 7.6 gm/dl (6.4-8.2); Troponin I < 0.015 ng/ml (0-0.045)
--- NOTE | 2020-08-04 16:19 | CT Scan Report ---
CT head/brain wo con CLINICAL HISTORY: 54 years-old Female with disequilibrium/left leg weakness eval for cva. Acute stro kelike symptoms TECHNIQUE: Multiple axial CT images of the head were obtained without contrast. A dose lowering tech nique was utilized adhering to the principles of ALARA. CT DOSE: 690.05 mGycm COMPARISON: CT temporal bone study of same day, head CT 03/29/2015. FINDINGS: No acute intracranial hemorrhage, midline shift, intracranial mass, hydrocephalus, territorial ischem ia or abnormal extra-axial collection. The calvarium is intact. Bilateral mastoid effusions. Fluid is noted within the bilateral middle ear cavities. The paranasal sinuses are generally clear. Right mary bullosa. Mild soft tissue prominen ce of the bilateral external auditory canal distributions. Orbits are within normal limits. IMPRESSION: 1. No acute intracranial abnormality. 2. Bilateral mastoid effusions. ACT 112: Negative or not required by law. The above report was generated using voice recognition software. It may contain grammatical, syntax o r spelling errors. Electronically signed by: Hugo Quinn M.D. 08/04/2020 4:18 PM
[2020-08-04 16:33] LABS: Appearance Urine Clear (Clear); Bacteria Urine Automated Negative (Negative); Bilirubin Urine Negative (Negative); Blood Urine Trace (Negative); Color Urine Yellow; Epithelial Cell Urine Auto >30 /lpf (0-5); Glucose Urine UA Negative (Negative); Ketones Urine Negative (Negative); Leukocyte Esterase Urine Negative (Negative); Nitrite Urine Negative (Negative); Protein Urine Negative (Negative); RBC Urine Automated 0-4 /hpf (0-4); Specific Gravity Urine 1.023 (1.000-1.030); Urobilinogen Urine Negative (Negative)
--- NOTE | 2020-08-04 17:06 | CT Scan Report ---
CT SCAN OF THE TEMPORAL BONES WITHOUT IV CONTRAST CLINICAL HISTORY: Disequilibrium. COMPARISON STUDY: CT of the brain performed concurrently on 08/04/2020. MRI of the brain dated 03/30/20. TECHNIQUE: High-resolution CT scan of the temporal bones is performed. Images are reviewed in the axi al, sagittal, and coronal planes. IV contrast was not administered for this examination. A dose lower ing technique was utilized adhering to the principles of ALARA. CT DOSE: 336.39 mGycm FINDINGS: There is no evidence of temporal bone fracture. There are moderate to large bilateral masto id effusions. The middle ear structures are normal as visualized. The ossicles are normal. The scutum are sharp bilaterally. There is no evidence of dehiscence of the tegmen tympani. There is no evidenc e of otosclerosis. There is marked soft tissue thickening identified along the course of the external auditory canal bilaterally with intraluminal debris. This extends to the tympanic membrane bilateral ly. There is mild bulging of the tympanic membrane bilaterally. Soft tissue infiltration is also sugg ested involving the ear bilaterally. The visualized paranasal sinuses are clear. The calvarium is int act as visualized. The imaged brain parenchyma at the skull base is within normal limits. Degenerativ e change is noted involving the temporomandibular joints. IMPRESSION: 1. Moderate to large bilateral mastoid effusions. 2. The middle ear structures are normal as imaged. 3. There is marked soft tissue thickening involving the external auditory canals bilaterally with sig nificant intraluminal debris. This is nearly occlusive on the right. Correlate clinically for evidenc e of otitis externa and possibly impacted cerumen. 4. Soft tissue infiltration is also suggested involving the ear bilaterally. ACT 112: Negative or not required by law. Dictated: 08/04/2020 4:15 PM Transcribed: 08/04/2020 4:56 PM Flores [id number] [facility] Electronically signed by: Klaus Casanova M.D. 08/04/2020 5:05 PM
--- NOTE | 2020-08-04 17:10 | Electrocardiogram Report ---
Test Reason : Blood Pressure : / mmHG Vent. Rate : 055 BPM Atrial Rate : 055 BPM P-R Int : 176 ms QRS Dur : 084 ms QT Int : 424 ms P-R-T Axes : 002 079 071 degrees QTc Int : 405 ms Sinus bradycardia Otherwise normal ECG When compared with ECG of 12-SEP-2017 13:47, Vent. rate has decreased BY 35 BPM Confirmed by Timo Chris ([id number]) on 08/04/2020 5:09:56 PM Referred By: Confirmed By:Dallas Chris
[2020-08-04] MEDS ORDERED: PIPERACILL/TAZOBAC CONSULT ACTIVE PRN (17:17)
[2020-08-04] MEDS ORDERED: PIPERACILLIN/TAZOBACTAM 4.5 GM/120 ML BAG IV ONE (17:17)
--- NOTE | 2020-08-04 19:45 | History & Physical Report ---
Date of Service August 04, 2020 Assessment & Plan (1) Chronic otitis externa: 54-year-old female with past medical history depression, anxiety, ADHD, OCD presents with concerns of decreased hearing and bilateral ear inflammation and erythema for the past week. Chronic otitis externa Temporal bone CT: Moderate to large bilateral mastoid effusions. The middle ear structures are normal as imaged. There is marked soft tissue thickening involving the external auditory canals bilaterally with significant intraluminal debris. This is nearly occlusive on the right. Soft tissue infiltration is also suggested involving the ear bilaterally. Lower concern for mastoiditis given no pain or tenderness on exam Antibiotic regimen to cover against most common pathogens S. aureus and P. aeruginosa. We will treat with Ciprodex otic drops (4 drops 4 times daily in ri ght ear) for inflammatory effect and p.o. Cipro 750 BID in case of malignant external otitis. Normal QTC noted Ear discharge sent for culture Patient follows with with [facility], Martha Kauffman PA-C. Unfortunately ENT consult service is not available this month, may have to call office directly or set up appointment with ENT on discharge Fatigue Unclear etiology. Patient reportedly slept from last Sunday (07/28) to Sunday (07/30) Prescription monitoring program shows that patient had a refill medications Ativan, Ambien, Adderall on the . Patient denies overdosing on medications however We will hold patient's Ambien, trazodone, Ativan Covid testing negative Depression/anxiety/ADHD/OCD Continue Abilify 15 mg, Adderall 30 mg twice daily, fluvoxamine 200 mg Holding Ativan, trazodone, Ambien as above FEN/GI: Regular diet DVT prophylaxis: Lovenox SQ CODE STATUS: Full code Dispo: MedSurg History of Present Illness Chief Complaint: leg weakness, slurred speech, ear pain Primary Care Provider: Gurdeep Duke MD 54-year-old female with past medical history depression, anxiety, ADHD, OCD presents with concerns of left lower extremity weakness that started about 3 days ago. Patient states that she 'feels as if she was drunk walking'. Family notes that they had concern of slurred speech which stated that yesterday. Patient denies any slurred speech by her account. Patient notes that she has not had symptoms like this ever before. Notes that she feels like her symptoms are improving since onset. Patient distantly states that she has had decreased hearing bilaterally over the past week or so. The decreased hearing is not new or unusual for patient as she has had issues with hearing since she was a teenager. However the decreased hearing appears to be more severe in the past week. Patient also notes increased swelling of bilateral ears and feelings of itchiness. Again, this is not new for patient. Patient follows with [facility] and normally when the symptoms occur she is prescribed otic drops and a steroid cream with resolution of symptoms. She tried these both again for this particular episode, however noted no improvement of symptoms. Patient denies any ear pain, ear discharge, tinnitus, or feelings of ear fullness. Patient otherwise denies any fevers, chills, sweats, nausea, vomiting, diarrhea, chest pain, shortness of breath, pain or swelling, falls, headache, visual changes, numbness, tingling, lightheadedness, dizziness. Patient does note that she was at a last week with about 20 people in attendance who were reportedly tested positive for COVID-19. Patient called over to PCPs office this morning and stated that 'last Sunday she laid down for a nap and never got up until Sunday afternoon'. PCP advised that she be seen in the ER for further evaluation of fatigue and above strokelike symptoms. Pertinent labs: Largely unremarkable CBC CMP Head CT: No acute intracranial abnormality. Bilateral mastoid effusions. Temporal bone CT: Moderate to large bilateral mastoid effusions. The middle ear structures are normal as imaged. There is marked soft tissue thickening involving the external auditory canals bilaterally with significant intraluminal debris. This is nearly occlusive on the right. Soft tissue infiltration is also suggested involving the ear bilaterally. ER course: IV Zosyn 4.5 g Allergies Allergy/AdvReac Type Severity Reaction Status Date / Time bacitracin Allergy Mild Rash, Itch Verified 08/04/20 18:39 neomycin Allergy Mild Rash, Itch Verified 08/04/20 18:39 polymyxin B Allergy Mild Rash, Itch Verified 08/04/20 18:39 Home Medications Medication Instructions Recorded Confirmed Type aripiprazole [Abilify] 15 mg PO QPM 08/04/20 08/04/20 History dextroamphetamine-amphetamine 30 mg PO BID 08/04/20 08/04/20 History [Adderall] fluvoxamine 200 mg PO HS 08/04/20 08/04/20 History lorazepam [Ativan] 2 mg PO .BID UD PRN 08/04/20 08/04/20 History trazodone 200 mg PO HS 08/04/20 08/04/20 History zolpidem [Ambien] 15 mg PO HS 08/04/20 08/04/20 History Past Med/Surg History Medical History Depression Social History Smoking Status: Current some day smoker Feels Safe at Home: Yes Review of Systems Review of Systems: All systems reviewed & are unremarkable except as noted in HPI & below Physical Exam Constitutional: WD/WN, vitals as above Eyes: Conjunctival injection bilaterally ENMT: Bilateral total ear inflammation resembling cauliflower ear with erythema extending into external auditory canal. No tenderness to palpation, tug test negative. No TTP over mastoid. White discharge bilaterally external auditory canal. Otoscopic exam visualizing TMs difficult given inflammation. Respiratory: normal respiratory effort, lungs clear to auscultation Cardiovascular: RRR, no murmur, no edema Gastrointestinal (Abdomen): normal bowel sounds, soft, nontender, no hepatosplenomegaly Skin: no rashes, warm and dry Neurologic: CN's II-XI intact bilaterally; no focal motor deficits Lower extremity muscle strength and sensation normal bilaterally Psychiatric: A+Ox3, euthymic affect Results & Data Results & Data ([facility]) Vital Signs (Past 12 Hours) Vital Signs Temp Pulse Resp BP Pulse Ox 08/04/20 18:31 63 16 95 08/04/20 18:30 59 L 16 137/73 98 08/04/20 18:00 48 L 16 08/04/20 17:31 58 L 13 08/04/20 17:30 57 L 13 103/72 95 08/04/20 17:01 57 L 21 134/65 08/04/20 17:00 56 L 13 08/04/20 16:31 56 L 17 08/04/20 16:30 50 L 16 114/75 08/04/20 16:24 52 L 15 08/04/20 16:23 56 L 18 133/79 08/04/20 16:22 57 L 13 08/04/20 15:31 62 12 08/04/20 15:30 57 L 12 133/85 98 08/04/20 15:22 60 18 97 08/04/20 15:12 60 19 141/85 H 97 08/04/20 14:06 36.5 C 63 18 156/84 H 95 Laboratory Results Laboratory Results - last 24 hr 08/04/20 08/04/20 08/04/20 15:10 15:10 15:10 WBC 6.50 RBC 5.11 Hgb 15.5 Hct 47.9 H MCV 93.7 MCH 30.3 MCHC 32.4 RDW Std Deviation 45.4 RDW Coeff of Lydia 13.2 Plt Count 201 MPV 11.5 H Immature Gran % (Auto) 0.3 Neut % (Auto) 45.4 Lymph % (Auto) 43.1 Dougherty % (Auto) 7.8 Eos % (Auto) 3.1 Baso % (Auto) 0.3 Neut # (Auto) 2.95 Lymph # (Auto) 2.80 Dougherty # (Auto) 0.51 Eos # (Auto) 0.20 Baso # (Auto) 0.02 Immature Gran # (Auto) 0.02 ESR PT 10.7 INR 1.0 APTT 27.5 PTT Ratio 1.0 Sodium 139 Potassium 4.2 Chloride 106 Carbon Dioxide 31 Anion Gap 2.0 L BUN 24 H Creatinine 0.97 Est Cr Clr Drug Dosing 67.5 Est GFR ( Amer) 76.7 Est GFR (Non-Af Amer) 66.2 BUN/Creatinine Ratio 24.8 H Glucose 91 Calcium 8.7 Magnesium 2.3 Total Bilirubin 0.2 AST 23 ALT 47 Alkaline Phosphatase 68 Troponin I < 0.015 C-Reactive Protein Total Protein 7.6 Albumin 4.0 Globulin 3.6 Albumin/Globulin Ratio 1.1 Urine Color Urine Appearance Urine pH Ur Specific [place] Urine Protein Urine Glucose (UA) Urine Ketones Urine Blood Urine Nitrite Urine Bilirubin Urine Urobilinogen Ur Leukocyte Esterase Urine WBC (Auto) Urine RBC (Auto) U Hyaline Cast (Auto) U Epithel Cells (Auto) Urine Bacteria (Auto) COVID-19 Eval Order SARS-CoV-2, RNA, NAAT SARS-CoV-2 Ag (Rapid) 08/04/20 08/04/20 08/04/20 15:10 15:10 16:00 WBC RBC Hgb Hct MCV MCH MCHC RDW Std Deviation RDW Coeff of Lydia Plt Count MPV Immature Gran % (Auto) Neut % (Auto) Lymph % (Auto) Dougherty % (Auto) Eos % (Auto) Baso % (Auto) Neut # (Auto) Lymph # (Auto) Dougherty # (Auto) Eos # (Auto) Baso # (Auto) Immature Gran # (Auto) ESR Pending PT INR APTT PTT Ratio Sodium Potassium Chloride Carbon Dioxide Anion Gap BUN Creatinine Est Cr Clr Drug Dosing Est GFR ( Amer) Est GFR (Non-Af Amer) BUN/Creatinine Ratio Glucose Calcium Magnesium Total Bilirubin AST ALT Alkaline Phosphatase Troponin I C-Reactive Protein < 0.29 Total Protein Albumin Globulin Albumin/Globulin Ratio Urine Color Yellow Urine Appearance Clear Urine pH 5.0 Ur Specific [place] 1.023 Urine Protein Negative Urine Glucose (UA) Negative Urine Ketones Negative Urine Blood Trace H Urine Nitrite Negative Urine Bilirubin Negative Urine Urobilinogen Negative Ur Leukocyte Esterase Negative Urine WBC (Auto) 1-5 Urine RBC (Auto) 0-4 U Hyaline Cast (Auto) 1-5 U Epithel Cells (Auto) >30 H Urine Bacteria (Auto) Negative COVID-19 Eval Order SARS-CoV-2, RNA, NAAT SARS-CoV-2 Ag (Rapid) 08/04/20 08/04/20 08/04/20 18:06 20:32 20:32 WBC RBC Hgb Hct MCV MCH MCHC RDW Std Deviation RDW Coeff of Lydia Plt Count MPV Immature Gran % (Auto) Neut % (Auto) Lymph % (Auto) Dougherty % (Auto) Eos % (Auto) Baso % (Auto) Neut # (Auto) Lymph # (Auto) Dougherty # (Auto) Eos # (Auto) Baso # (Auto) Immature Gran # (Auto) ESR PT INR APTT PTT Ratio Sodium Potassium Chloride Carbon Dioxide Anion Gap BUN Creatinine Est Cr Clr Drug Dosing Est GFR ( Amer) Est GFR (Non-Af Amer) BUN/Creatinine Ratio Glucose Calcium Magnesium Total Bilirubin AST ALT Alkaline Phosphatase Troponin I C-Reactive Protein Total Protein Albumin Globulin Albumin/Globulin Ratio Urine Color Urine Appearance Urine pH Ur Specific [place] Urine Protein Urine Glucose (UA) Urine Ketones Urine Blood Urine Nitrite Urine Bilirubin Urine Urobilinogen Ur Leukocyte Esterase Urine WBC (Auto) Urine RBC (Auto) U Hyaline Cast (Auto) U Epithel Cells (Auto) Urine Bacteria (Auto) COVID-19 Eval Order Covid19 IDNow atMVAC SARS-CoV-2, RNA, NAAT Pending SARS-CoV-2 Ag (Rapid) Negative Medications Administered Current Inpatient Medications Miscellaneous Information ([place] Consult Active) 1 ea N/A UD PRN PRN Reason: Consult Stop: 09/03/20 17:16 Code Status & VTE Plan Code Status Full Resident Activity Tracking Resident Involvement: Resident Care Provided Care Provided: Adult Hospital Medicine
[2020-08-04] MEDS ORDERED: ALUMINUM/MAGNESIUM SUSP 30 ML UDC PO PRN (22:55)
[2020-08-04] MEDS ORDERED: ONDANSETRON INJ 2 MG/ML 2 ML VIAL IV PRN (22:55)
[2020-08-04] MEDS ORDERED: ACETAMINOPHEN 325 MG TAB PO PRN (22:55)
[2020-08-05] MEDS: CIPROFLOXACIN 250 MG TAB PO SCH ×3 (01:21→22:23)
[2020-08-05] MEDS ORDERED: INFLUENZA ADMINISTRATION CHARGE ONE (01:55)
[2020-08-05] MEDS ORDERED: INFLUENZA VIRUS QUAD VACCINE 0.5 ML SYR IM ONE (01:55)
[2020-08-05 06:07] LABS: Basophils # (auto) 0.01 K/uL (0-0.2); Basophils % (auto) 0.2 %; Eosinophils # (auto) 0.21 K/uL (0-0.5); Eosinophils % (auto) 3.2 %; Hematocrit (blood only) 45.1 % (37-47); Hemoglobin 14.4 g/dL (12.0-16.0); Immature Granulocytes # (auto) 0.01 K/uL (0.00-0.02); Immature Granulocytes % (auto) 0.2 %; Lymphocytes # (auto) 2.57 K/uL (1.2-3.4); Lymphocytes % (auto) 39.1 %; Mean Corpuscular Hemoglobin 30.1 pg (25-34); Mean Corpuscular Hgb Conc 31.9 g/dL (32-36); Mean Corpuscular Volume 94.2 fL (80-100); Mean Platelet Volume 11.9 fL (7.4-10.4); Monocytes # (auto) 0.58 K/uL (0.11-0.59); Monocytes % (auto) 8.8 %; Neutrophils # (auto) 3.19 K/uL (1.4-6.5); Neutrophils % (auto) 48.5 %; Platelet Count 227 K/uL (130-400); RDW Coefficient of Variation 13.4 % (11.5-14.5); RDW Standard Deviation 46.1 fL (36.4-46.3); Red Blood Count 4.79 M/uL (4.2-5.4); White Blood Count 6.57 K/uL (4.8-10.8)
[2020-08-05 06:32] LABS: BUN Creatinine Ratio 23.4 (10-20); Calcium 8.6 mg/dl (8.5-10.1); Creatinine Clr Calc Pharmacy 68.2 ml/min; Est GFR (African American) 77.7; Potassium 3.8 mmol/L (3.5-5.1)
[2020-08-05] MEDS: CIPRO 0.3%/DEXAMETHASONE 0.1% OTIC SUSP 7.5ML OTR SCH ×4 (08:30→20:55)
[2020-08-05] MEDS: AMPHETAMINE ASP/SULF/DEXTRAMPH 10 MG TAB PO SCH ×2 (08:33→21:54)
[2020-08-05] MEDS: ENOXAPARIN INJ 40 MG/0.4 ML SYR SQ SCH (08:33)
--- NOTE | 2020-08-05 11:51 | Billing Data ---
Date of Service August 04, 2020 Coding Level of Care Code 90230 OBS Care - Level 3
[2020-08-05] MEDS ORDERED: GADOBUTROL 65ML VIAL IV ONE (12:50)
--- NOTE | 2020-08-05 13:42 | Magnetic Resonance Report ---
MRI OF THE BRAIN COMBO CLINICAL HISTORY: Diplopia. Loss of balance. COMPARISON STUDY: MRI of the brain dated 03/30/2015. CT of the brain and temporal bones dated 0. TECHNIQUE: MRI of the brain was performed utilizing various T1 and T2-weighted sequences in the axial , sagittal, and coronal planes. Contrast-enhanced sequences were acquired following the administratio n of 8.5 cc of Gadavist. The examination is performed using the multiple sclerosis protocol. FINDINGS: Brain parenchyma: There are scattered (less than 5) foci of T2 signal abnormality scattered subcortic al and periventricular white matter. The brain parenchyma is otherwise normal in appearance. There is no hemorrhage or mass effect. There is no restricted diffusion to suggest acute ischemia. No enhanci ng mass lesion is identified on the postcontrast images. Gonzalez-white matter differentiation is preserv ed. No extra-axial fluid collection is seen. The cerebellar tonsils are normal in configuration. Ventricles, sulci, and cisterns: Normal in configuration. Pituitary and sella: Unremarkable. Intracranial vasculature: Normal flow voids are maintained at the skull base. Orbits: The bony orbits are grossly intact. Orbital contents are normal in appearance. Sinuses and mastoids: The paranasal sinuses are clear. There are moderate to large bilateral mastoid effusions. Significant soft tissue thickening is seen involving the external auditory canal bilateral ly. Calvarium: Unremarkable. Cervical cord: Partially visualized cervical spinal cord is normal in morphology and signal intensity . IMPRESSION: 1. No acute intracranial abnormality. 2. Moderate to large mastoid effusions. 3. Soft tissue thickening is again seen involving the external auditory canals bilaterally. Correlate clinically for evidence of otitis externa. 4. There are scattered foci of T2 signal abnormality seen throughout the white matter, which are ty lar in distribution to the 2015 examination and likely represent mild microangiopathic change. Clinic al correlation will be required. ACT 112: Negative or not required by law. Electronically signed by: Klaus Casanova M.D. 08/05/2020 1:40 PM
--- NOTE | 2020-08-05 19:56 | Hospitalist Progress Note ---
Date of Service August 05, 2020 Assessment & Plan (1) Chronic otitis externa: Luana Ramon is a 54-year-old female with a PMHx of depression, anxiety, ADHD, and OCD who presents to the hospital with concerns of trouble walking and slurred speech. She was admitted for further evaluation. While in the ED, patient was also found to have chronic otitis externa with associated decreased hearing and bilateral ear inflammation x1 week. Neuro Symptoms/Deficits - Patient with complaint of trouble walking and diplopia x3 days. Also noted to have slurred speech per her son yesterday. - Patient with family history of MS in her sister, 1st cousin, and 2nd cousin - She also had a similar episode (to today's presenting symptoms) 5 years ago; at that time, established care with neurology (Dr. Law) - Head CT 08/04/20: No acute intracranial abnormality. Bilateral mastoid effusions. - Will order MRI Brain today - MRI Brain 08/05/20: No acute intracranial abnormality. Moderate to large mastoid effusions. Soft tissue thickening is again seen involving the external auditory canals bilaterally. Correlate clinically for evidence of otitis externa. There are scattered foci of T2 signal abnormality seen throughout the white matter, which are similar in distribution to the 2015 examination and likely represent mild microangiopathic change. Clinical correlation will be required. - Will place neurology consult for further recommendations Fatigue - Unclear etiology. Patient reportedly slept from last Sunday (07/28) to Sunday (07/30) with periods of waking but "feeling groggy" - Per admitting physician, prescription monitoring program shows that patient had a refill medications Ativan, Ambien, Adderall on the . Patient denies overdosing on these medications. - However, at this time will hold patient's Ambien, trazodone, Ativan - Covid-19 testing in ED 08/04 negative - Will continue to monitor sxs - No recent thyroid studies, will check TSH and T4 levels - Further workup as noted above (neuro symptoms/deficits) Chronic otitis externa - Temporal bone CT 08/04: Moderate to large bilateral mastoid effusions. The middle ear structures are normal as imaged. There is marked soft tissue thickening involving the external auditory canals bilaterally with significant intraluminal debris. This is nearly occlusive on the right. Soft tissue infiltration is also suggested involving the ear bilaterally. - Lower concern for mastoiditis given no pain or tenderness on exam - Antibiotic regimen to cover against most common pathogens S. aureus and P. aeruginosa - Will treat with Ciprodex otic drops (4 drops 4 times daily in right ear) for inflammatory effect and p.o. Cipro 750 BID in case of malignant external otitis. Normal QTC noted - Ear discharge sent for culture - Patient follows with with [facility], Martha Kauffman PA-C - Unfortunately ENT consult service is not available this month, may have to call office directly or set up appointment with ENT on discharge Depression/anxiety/ADHD/OCD - Continue Abilify 15 mg, Adderall 30 mg twice daily, fluvoxamine 200 mg - Holding Ativan, trazodone, Ambien as above FEN/GI: Regular diet DVT prophylaxis: Lovenox SQ Dispo: MedSurg CODE STATUS: Full code Admission and Anticipated Discharge Date Admission Date: August 04, 2020 Supervising Physician Co-Signing Physician Notes Patient seen and examined with PGY-1 Dr. Mcdonald. Agree with history, exam findin gs, assessment and plan of care. In brief, Ms. Ramon is a 54 year old female admitted with left leg weakness, difficulty ambulating, diplopia, intermittent slurred speech and fatigue. She feels that her speech is improved. However, ambulation still feels a bit off balance although a bit better compared to prior days. She had a similar set of symptoms about 5 years ago for which she had a neurologic work up. Previously seen by Dr. Law. Exam as above by Dr. Aponte. 1. left leg weakness, difficulty with ambulation, diplopia. There is a strong family history of MS and prior episode with similar symptoms 5 years ago. Concern for intracranial issue. MRI brain with IV contrast showed scattered foci with T2 signal abnormality throughout the white matter in a similar distribution to 2015. Appreciate neurology recommendations. 2. Fatigue. Holding all sedating medications. 3. bilateral mastoid effusion, chronic otitis externa. Continue ciprodex and PO cipro. Culture pending. Other chronic issues stable, home medications continued. Ruel Ramon is a 54 yo female who presented to the ED on 08/04/20 with complaints of difficulty walking and slurred speech. Patient states that for the past 3 days, she has had difficulty walking described as "feeling like walking drunk," BLE weakness L>R, and double vision (she does wear corrective lenses but reports compliance with eye exams every 1-2 years). She also notes that yesterday her son, who does not live with her, was saying that her speech was slurred and she wasn't making sense. Patient did not feel like her speech was slurred. She denies having difficulty finding words or saying the wrong words to describe an item. Patient does report some decreased hearing and a "thumping" sensation in the ears b/l. Additionally, patient reports being "extra tired" 1 week ago and sleeping from Saturday 07/28-Monday 07/30; she reports waking up during brief periods but feeling "groggy" and "unable to get up to do anything." She notes that she had a similar episode to these symptoms about 5 years ago. At that time, patient was evaluated by neurology and had a reportedly overall unremarkable workup. Patient states that there is a family history of MS -- her sister was diagnosed at age 40 with similar symptoms to patient's current concerns; her 1st cousin and 2nd cousin (both on dad's side) also have MS. At time of evaluation today, patient states that she is feeling "mostly" better. She does report some persistent bilateral lower extremity weakness, L>R, and feeling of being off balance. She does not feel as if she has any speech difficulty. Patient denies fever, chills, CP, SOB, cough, abdominal pain, nausea, vomiting, change in bowel habits, headache, numbness, tingling, lower extremity pain, or lower extremity swelling. Review of Systems Constitutional: + fatigue; no fever and no chills Eyes: + corrective lenses, + diplopia and + worsening vision Ear, Nose, Mouth, Throat: + ear pain (described as "hearing a thumping sensation" ) and + hearing loss; no ear trauma Respiratory: no cough and no dyspnea Cardiovascular: no chest pain Gastrointestinal: no abdominal pain, no nausea and no vomiting Musculoskeletal: + muscle weakness; no joint pain and no swelling Neurologic: + gait abnormality, + unsteadiness, + localized weakness, + lack of coordination and + abnormal speech; no seizure-like activity, no syncope and no headache(s) Physical Exam Physical Exam: GENERAL: No acute distress. Well developed and well nourished. Vital signs reviewed. EYES: PERRLA. EOMI. Anicteric sclerae. HENT: Moist mucous membranes. RESPIRATORY: Clear to auscultation bilaterally. No wheezing, rales, or rhonchi. CARDIOVASCULAR: Regular rate and rhythm. No murmurs. ABDOMEN: Soft and non-tender. Normal bowel sounds. EXTREMITIES: No edema. Non-tender. SKIN: Warm, dry. No rashes or lesions. NEUROLOGIC: Gait abnormality - gait is slowed and patient appears off balance. C N II-XII grossly intact. Normal sensation in BLE. Normal [id number]. Normal [id number]. No pronator drift. PSYCHIATRIC: Cooperative. Appropriate mood and affect. Results & Data Results & Data ([facility]) Vital Signs (Past 12 Hours) Vital Signs Temp Pulse Resp BP Pulse Ox 08/05/20 16:02 37.0 C 57 L 18 97/58 L 95 08/05/20 08:24 36.5 C 63 17 120/73 91 Resident Activity Tracking Resident Involvement: Resident Care Provided Care Provided: Adult Hospital Medicine
[2020-08-05] MEDS ORDERED: ARIPiprazole 15 MG TAB PO SCH (21:00)
[2020-08-05] MEDS ORDERED: fluvoxaMINE MALEATE 50 MG TAB PO SCH (21:00)
--- NOTE | 2020-08-06 08:00 | Neurology Consultation ---
Date of Consultation August 06, 2020 Assessment & Plan (1) Ataxia: (2) Left leg weakness: (3) Chronic otitis externa: (4) Mastoiditis of both sides: (5) Depression: this patient had some recent nonspecific symptoms including fatigue, gait/balance issues, dysarthria, brief episode of double vision, and weakness of the limbs particularly the Left lower extremity. Currently, her neurologic examination is unremarkable with no focal findings or weakness, speech or mentation problems, or gait/balance issues. MRI of the brain shows no acute changes and her small vessel ischemia is mild and unchanged from 2015. There is no evidence clinically or radiographically to suggest multiple sclerosis in this patient. I suspect her symptoms were due to her inner ear inflammation /infections including mastoiditis and otitis externa. She has received antibiotics and today seems fairly asymptomatic and back to her baseline. She has a history of depression which is stable. Recommendations: 1. Continue antibiotic treatment for 14-21 days because of the mastoiditis 2. Consider ENT follow up as an outpatient 3. I see no reason for additional neurologic testing or treatment recommendations otherwise at this time. Overall, I spent a total of 75 minutes with this case including review of records, review of MRI films, direct evaluation of the patient at bedside, and discussion of the case with the patient at bedside, nursing at bedside, and Dr. ag in including differential diagnosis and treatment options. History of Present Illness Reason for Consultation: Patient is a 54-year-old, who I was asked to see at the request of Dr. Brito, for neurologic consultation regarding weakness and other neurologic symptoms Requesting Physician: Dr. Brito Attending Physician: Hussein Brumfield MD History of Present Illness I 1st saw this patient in March of 2015 when she was hospitalized here. She had a relatively acute onset of generalized weakness ( legs greater than arms ) and myalgia. The pattern seemed little more proximal than distal and her overall weakness was very mild. She did have some slurred speech and "foggy" thinking but this cleared quickly. Reflexes were normal as were the CK and sed rate. By the time I 1st saw her, she was given 1 gram of IV Solu-Medrol ( for unknown reasons ) but this dramatically helped. MRI of the brain showed some mild nonspecific small vessel ischemic changes with no acute issues. Echocardiogram was unremarkable. Patient's symptoms resolved in a matter of days and she was seen last in April of 2015 back in to her baseline. I have not seen her since. Her history is remarkable for chronic ear infections and problems since teen years. She has a longstanding history of anxiety and depression followed by Psychiatry. She currently feels her mood is very stable on her current regimen of medication which includes Abilify, Adderall, fluvoxamine, trazodone, and Ativan as needed. The patient states that 9 days ago on July 28, the patient was extremely tired and sleepy for unknown reasons. She got up a few times to go to the bathroom but really was not very awake until the afternoon July 30. She does not remember being ill. Approximately 5 days ago she noted some generali zed weakness, left side greater than right, but she was not weaker in 1 particular limb compared to another. she denied pain, myalgia, arthralgia, numbness or tingling, or incontinence of urine. She felt her balance was off and she was not walking. She did not have vertigo but did have fullness in her ears right greater than left side with occasional pain and decreased hearing. She denied tinnitus but when she laid down she had "thumping" in her ears bilaterally. She does not have headaches. Family noted that she had slurred speech although she did not feel her speech was affected. The evening prior to coming into the hospital she had an episode of double vision while trying to type on the computer. This was self-limited and has not recurred. She arrived to the emergency room August 04 at 1406 with a temperature of 36.5, pulse 63 and regular, respiratory rate 18 and comfortable, blood pressure 156/84, and O2 saturation 95 percent. Neurologic exam was described as the left lower extremity was mildly weak. Her gait was "slow" and her speech may have been mildly slurred. CBC and Chem profile were unremarkable. Sed rate was 4 and TSH was 2.9. Urinalysis and Covid-19 negative. CK was not tested. CT scan of the head was unremarkable. CT scan of the temporal bones revealed soft tissue infiltration bilaterally and changes consistent with right otitis externa. The mastoid bones had fusions bilaterally. Culture of the right ear showed gram-negative bacilli had group B strep. MRI of the brain showed a few old nonspecific white matter spots, unchanged from 2015. there was chronic mastoid effusions bilaterally. I reviewed these films. Patient feels back to baseline currently and wants to go home. She denies pain, headaches, weakness, numbness, vision problems, mentation issues, or mood problems. She is not fatigued has good energy. She feels her speech is back to normal and her balance is good. Allergies Allergy/AdvReac Type Severity Reaction Status Date / Time bacitracin Allergy Mild Rash, Itch Verified 08/04/20 18:39 neomycin Allergy Mild Rash, Itch Verified 08/04/20 18:39 polymyxin B Allergy Mild Rash, Itch Verified 08/04/20 18:39 Home Medications Medication Instructions Recorded Confirmed Type aripiprazole [Abilify] 15 mg PO QPM 08/04/20 08/04/20 History dextroamphetamine-amphetamine 30 mg PO BID 08/04/20 08/04/20 History [Adderall] fluvoxamine 200 mg PO HS 08/04/20 08/04/20 History lorazepam [Ativan] 2 mg PO .BID UD PRN 08/04/20 08/04/20 History trazodone 200 mg PO HS 08/04/20 08/04/20 History zolpidem [Ambien] 15 mg PO HS 08/04/20 08/04/20 History Patient History Medical History Depression Family History Mother Hypertension Osteoarthritis Father Diabetes Hypertension Social History Smoking Status: Current every day smoker Years Smoked: 35; Cigarettes Per Day: 20; Second Hand Exposure: Yes; Do You Dip or Chew Tobacco: No; Tobacco Cessation Education Requested by Patient: No Hx Alcohol Use: Yes Alcohol type: beer, wine and hard liquor Hx Substance Use: No Preferred Language: Kinyarwanda Communication Ability: Effective Gas Examiner Required: No Beliefs That Will Affect Care: None Current Living Situation: Spouse current occupational status: retired 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, as admin assist Other Information That Helps Us Care for You: No Feels Safe at Home: Yes Safety Concerns: Feels Safe At This Time Assistive Devices: None Review of Systems Constitutional: no fever, no fatigue and no weakness Eyes: no diplopia, no eye pain and no worsening vision Ear, Nose, Mouth, Throat: + ear pain and + hearing loss; no tinnitus, no dizziness, no hoarseness and no dysphagia Respiratory: no cough and no dyspnea Cardiovascular: no chest pain, no palpitations and no lightheadedness Gastrointestinal: no abdominal pain, no nausea and no vomiting Genitourinary: no dysuria, no urinary frequency and no urinary incontinence Musculoskeletal: no back pain, no neck pain, no radicular pain, no joint pain and no myalgia Integumentary: no rash and no lesions Neurologic: no gait abnormality, no localized weakness, no generalized weakness, no tingling, no numbness, no tremor(s), no abnormal movements, no headache(s), no abnormal speech, no confusion and no memory loss Psychiatric: no depression, no irritability, no anxiety, no difficulty concentrating, no confusion and no hallucinations Endocrine: no fatigue and no flushing Hematologic / Lymphatic: no easy bleeding and no easy bruising Allergy / Immunological: no urticaria and no problem reported Exam (Neuro) Physical Exam: The patient is right-handed. The patient is awake, alert, and attentive. Speech is normal without any aphasia, although at times, I could detect some slight dysarthria. She can name objects, repeat phrases, and has normal spontaneous speech. Mentation and thought processes are intact, with orientation to person, place and time, and normal fund of knowledge. Attention and concentration are normal. Mood and affect are normal and appropriate. General appearance and grooming are normal. Short and long-term memory are intact. The discs are sharp with positive venous pulsations bilaterally. There are no exudates, hemorrhages, or blood vessel changes seen. Pupils are 4 mm bilaterally and reactive to light. Extraocular eye muscles are intact without nystagmus. Visual acuity and visual leung seem normal grossly to confrontation. There are no deficits to sensation in the face in all 3 distributions of the fifth cranial nerve bilaterally. Corneal reflexes are positive bilaterally. Facial strength and symmetry was normal bilaterally. Hearing seems normal to whisper and finger rub bilaterally. Palate moves well without asymmetry. There is normal sternocleidomastoid and trapezius (shoulder shrug) strength bilaterally. Tongue is midline with good strength bilaterally. Neck has a full range of motion without discomfort. There are no cervical bruits bilaterally. There are no cranial or ocular bruits. Heart is without murmur. There is a regular rhythm and rate. Cervical, thoracic, and lumbar spine are nontender to palpation. Gait is narrow based, with good arm swing, turns, and stance. Balance is normal eyes open or closed. T With outstretched arms there is no drift. There are no resting, postural, or action tremors. There is no ataxia with finger to nose testing or heel to cramer testing. There is good facility in the hands. No other abnormal involuntary movements are noted. Motor strength is 5/5 diffusely in the arms bilaterally including deltoids, biceps, triceps, brachioradialis, wrist flexors and extensors, supervisor rice milling, and intrinsic hand muscles. Motor strength is 5/5 diffusely in the legs bilaterally including hip flexors, quadriceps, hamstrings, gastrocnemius, tibialis anterior, tibialis posterior, and Peroneii muscles. Toe extensors are normal and there is good bulk in the extensor digitorum brevis muscles bilaterally. I do not detect any focal weakness. The limbs have good tone without rigidity or spasticity. There is no atrophy noted in the muscles. Muscle bulk is normal, there is no tenderness to palpation, no myotonia to percussion, and no fasciculations seen. Sensory examination is intact to touch and pin throughout all 4 limbs diffusely. Reflexes are 2/4 in the biceps, triceps, brachioradialis, and quadriceps tendons bilaterally. Achilles tendon reflexes are 1/4 bilaterally. There is no clonus bilaterally. Toes are downgoing with plantar stimulation bilaterally. Peripheral pulses are present and of normal quality distally in all 4 limbs. There is no peripheral edema noted in the limbs. Results & Data ([facility]) Vital Signs (Past 12 Hours) Vital Signs Temp Pulse Resp BP Pulse Ox 08/06/20 07:20 36.4 C L 58 L 18 129/70 93 08/05/20 23:00 36.7 C 55 L 20 111/71 94 PG Care Time/CCT Total # of Minutes Spent Total Time Spent with Patient: Total time spent is greater than 50% in coordination of care (as documented) at patient's floor/unit and/or counseling patient: Coding Level of Care Code 31236 Inpt Consult Level 5 Diagnoses Ataxia R27.0 Left leg weakness R29.898 Chronic otitis externa H60.60 Mastoiditis of both sides H70.93 Depression F32.9 Time Spent (min) 75
[2020-08-06] MEDS: ENOXAPARIN INJ 40 MG/0.4 ML SYR SQ SCH (08:28)
[2020-08-06] MEDS: CIPRO 0.3%/DEXAMETHASONE 0.1% OTIC SUSP 7.5ML OTR SCH ×2 (08:28→12:24)
[2020-08-06] MEDS: AMPHETAMINE ASP/SULF/DEXTRAMPH 10 MG TAB PO SCH (09:16)
--- NOTE | 2020-08-06 10:10 | Discharge Summary ---
Date of Service August 06, 2020 Admission HPI Per Admitting Provider 54-year-old female with past medical history depression, anxiety, ADHD, OCD presents with concerns of left lower extremity weakness that started about 3 days ago. Patient states that she 'feels as if she was drunk walking'. Family notes that they had concern of slurred speech which stated that yesterday. Patient denies any slurred speech by her account. Patient notes that she has not had symptoms like this ever before. Notes that she feels like her symptoms are improving since onset. Patient distantly states that she has had decreased hearing bilaterally over the past week or so. The decreased hearing is not new or unusual for patient as she has had issues with hearing since she was a teenager. However the decreased hearing appears to be more severe in the past week. Patient also notes increased swelling of bilateral ears and feelings of itchiness. Again, this is not new for patient. Patient follows with [facility] and normally when the symptoms occur she is prescribed otic drops and a st eroid cream with resolution of symptoms. She tried these both again for this particular episode, however noted no improvement of symptoms. Patient denies any ear pain, ear discharge, tinnitus, or feelings of ear fullness. Patient otherwise denies any fevers, chills, sweats, nausea, vomiting, diarrhea, chest pain, shortness of breath, pain or swelling, falls, headache, visual changes, numbness, tingling, lightheadedness, dizziness. Patient does note that she was at a last week with about 20 people in attendance who were reportedly tested positive for COVID-19. Patient called over to PCPs office this morning and stated that 'last Sunday she laid down for a nap and never got up until Sunday afternoon'. PCP advised that she be seen in the ER for further evaluation of fatigue and above strokelike symptoms. Pertinent labs: Largely unremarkable CBC CMP Head CT: No acute intracranial abnormality. Bilateral mastoid effusions. Temporal bone CT: Moderate to large bilateral mastoid effusions. The middle ear structures are normal as imaged. There is marked soft tissue thickening involving the external auditory canals bilaterally with significant intraluminal debris. This is nearly occlusive on the right. Soft tissue infiltration is also suggested involving the ear bilaterally. ER course: IV Zosyn 4.5 g Admission Exam Per Admitting Provider Constitutional: WD/WN, vitals as above Eyes: Conjunctival injection bilaterally ENMT: Bilateral total ear inflammation resembling cauliflower ear with erythema extending into external auditory canal. No tenderness to palpation, tug test negative. No TTP over mastoid. White discharge bilaterally external auditory canal. Otoscopic exam visualizing TMs difficult given inflammation. Respiratory: normal respiratory effort, lungs clear to auscultation Cardiovascular: RRR, no murmur, no edema Gastrointestinal (Abdomen): normal bowel sounds, soft, nontender, no hepatosplenomegaly Skin: no rashes, warm and dry Neurologic: CN's II-XI intact bilaterally; no focal motor deficits Lower extremity muscle strength and sensation normal bilaterally Psychiatric: A+Ox3, euthymic affect Principal Diagnosis chronic otitis externa Discharge Exam GENERAL: No acute distress. Well developed and well nourished. Vital signs reviewed. EYES: EOMI. Anicteric sclerae. HENT: Moist mucous membranes. Mild tenderness to palpation over submandibular lymph nodes. No tenderness/pain elicited with movement of the ears (both pinna and lobes) bilaterally. RESPIRATORY: Clear to auscultation bilaterally. No wheezing, rales, or rhonchi. CARDIOVASCULAR: Regular rate and rhythm. No murmurs. ABDOMEN: Soft and non-tender. Normal bowel sounds. EXTREMITIES: No edema. Non-tender. SKIN: Warm, dry. No rashes or lesions. NEUROLOGIC: No focal neurological deficits. CN II-XII grossly intact, but not individually tested. PSYCHIATRIC: Cooperative. Appropriate mood and affect. Discharge Data Allergies Allergy/AdvReac Type Severity Reaction Status Date / Time bacitracin Allergy Mild Rash, Itch Verified 08/04/20 18:39 neomycin Allergy Mild Rash, Itch Verified 08/04/20 18:39 polymyxin B Allergy Mild Rash, Itch Verified 08/04/20 18:39 Consultations 08/04/20 17:22 ED Decision to Admit Stat 08/05/20 20:05 Consult Neurology Routine Ordered Studies 08/04/20 15:36 CT head/brain wo con Stat CT temporal bones wo con Stat 08/05/20 11:40 MR brain MS wo/w con Routine Hospital Course (1) Chronic otitis externa: Luana Ramon is a 54-year-old female with a PMHx of depression, anxiety, ADHD, and OCD who presents to the hospital with concerns of trouble walking and slurred speech. She was admitted for further evaluation. While in the ED, patient was also found to have chronic otitis externa with associated decreased hearing and bilateral ear inflammation x1 week. Chronic otitis externa/Mastoiditis - Temporal bone CT 08/04: Moderate to large bilateral mastoid effusions. The middle ear structures are normal as imaged. There is marked soft tissue thickening involving the external auditory canals bilaterally with significant intraluminal debris. This is nearly occlusive on the right. Soft tissue infiltration is also suggested involving the ear bilaterally. - Ear discharge collected 08/04/20 sent for culture - Preliminary results from right ear culture growing pseudomonas aeruginosa and group B beta strep - Will treat with Ciprodex otic drops (4 drops 4 times daily in both ears) x14 days for inflammatory effect and p.o. Cipro 750 BID x14 days. Normal QTC noted - Patient follows with with [facility], Martha Kauffman PA-C -- she already has f/u scheduled with ENT for 08/09/20 - Plan for f/u with PCP within 1 week to re-examination of the ears, ear canals, and TMs. Left leg weakness/Gait Imbalance/Diplopia - Patient with complaint of trouble walking and diplopia x3 days. Also noted to have slurred speech per her son yesterday (08/03). - Patient with family history of MS in her sister, 1st cousin, and 2nd cousin - She also had a similar episode (to current visit's presenting symptoms) 5 years ago; at that time, established care with neurology (Dr. Law) - Head CT 08/04/20: No acute intracranial abnormality. Bilateral mastoid effusion s. - MRI Brain 08/05/20: No acute intracranial abnormality. Moderate to large mastoid effusions. Soft tissue thickening is again seen involving the external auditory canals bilaterally. Correlate clinically for evidence of otitis externa. There are scattered foci of T2 signal abnormality seen throughout the white matter, which are similar in distribution to the 2015 examination and likely represent mild microangiopathic change. Clinical correlation will be required. - Will place neurology consult for further recommendations - Neuro consult 08/06/[address] Law -- "Currently, her neurologic ex amination is unremarkable with no focal findings or weakness, speech or mentation problems, or gait/balance issues. MRI of the brain shows no acute changes and her small vessel ischemia is mild and unchanged from 2015. There is no evidence clinically or radiographically to suggest multiple sclerosis in this patient." - Neuro recommendations: 1. Continue antibiotic treatment for 14-21 days because of the mastoiditis. 2. Consider ENT follow up as an outpatient 3. I see no reason for additional neurologic testing or treatment recommendations otherwise at this time. - Advised patient to call PCP and/or return to the ED if she were to have any concerning symptoms for stroke - slurred speech, unilateral weakness, facial droop, etc. Fatigue - Unclear etiology. Patient reportedly slept from last Sunday (07/28) to Sunday (07/30) with periods of waking but "feeling groggy" - Per admitting physician, prescription monitoring program shows that patient had a refill medications Ativan, Ambien, Adderall on the . Patient denies overdosing on these medications. - However, during admission, held patient's Ambien, trazodone, Ativan - Covid-19 testing in ED 08/04 negative - No recent thyroid studies, will check TSH and reflex T4 as needed - - TSH 08/05 is normal at 2.93 - On discharge, decreased Ambien to 5mg po qhs and stopped Ativan 2mg po prn - Recommend that sedating medications be reviewed with patient in outpatient setting and would recommend weaning off/decreasing dosage of some of the medications (for example, weaning down the trazodone). Depression/anxiety/ADHD/OCD - Continue Abilify 15 mg, Adderall 30 mg twice daily, fluvoxamine 200 mg -- these medications were continued on discharge - Recommend medication review as outpatient (see above) Total Time Total Time Spent Total Time Spent (In Minutes): See attending attestation Discharge Plan Discharge Items Patient Disposition: Home - Self-Care Reason For Visit: OE Discharge Diagnosis: otitis externa Condition on Discharge: Good Activity: Resume your previous activity Non-emergency contact: Primary Care Provider and Specialist Call non-emergency contact if: you have any medication questions, your symptoms worsen, your pain is not controlled and you have a fever Follow-up/Referrals: Gurdeep Duke MD [Primary Care Provider] - Diet: Regular Addtl Attending Provider Instructions: Walk, It was our pleasure to care for you at [facility] from 08/04/20 to 08/06/20. You were seen and evaluated for multiple concerns including trouble walking, slurred speech, double vision, decreased hearing, and increased fatigue. You have been diagnosed with bilateral (both ears) otitis externa, which is an infection of the ear canal. For this problem, you have been started on two medications - Ciprodex ear drops (4 drops 4 times daily in each ear) to help with the swelling and Ciprofloxacin 750mg orally by mouth twice a day. You should continue these medications for the next 12 days (for a total length of treatment of 14 days). Please follow up with your ENT specialist as scheduled on 08/09/20. While in the hospital, you also had imaging of your brain with both a CT scan and an MRI; these showed no abnormalities, signs of stroke, or bleed - this is good! You were also evaluated by neurology due to your symptoms and family history of MS. At this time, your neurological exam was very good and there is no evidence of MS. You expressed concerns about fatigue and sleeping for several days last week. I checked your thyroid function (as an inappropriately functioning thyroid can cause fatigue) but, in good news, your thyroid is functioning normally. I also held some of your home medications that can cause drowsiness. As we discussed, I am decreasing your home Ambien to 5mg by mouth every night - stop taking the 15mg Ambien dose. I am also stopping your Ativan 2mg. Please follow up with your primary care doctor within 1 week. You should resume your other home medications including Abilify, Adderall, fluvoxamine, and trazodone. If you have any questions, please call your primary care doctor's office or you ENT specialist's office. Pending Studies at Discharge: No Stand-Alone Forms: [facility], Smoking Cessation Medications and DC Order Prescriptions: New ciprofloxacin HCl 750 mg tablet 750 mg PO Q12H 12 Days Qty: 24 RF: 0 ciprofloxacin-dexamethasone [Ciprodex] 0.3-0.1 % Drops,Suspension 4 drp OTB QID 12 Days Qty: 7.5 RF: 0 zolpidem [Ambien] 5 mg tablet 5 mg PO HS Qty: 30 RF: 0 zolpidem 5 mg tablet 5 mg PO HS PRN (Reason: insomnia) Qty: 7 RF: 0 Continued dextroamphetamine-amphetamine [Adderall] 30 mg tablet 30 mg PO BID RF: 0 fluvoxamine 100 mg tablet 200 mg PO HS RF: 0 aripiprazole [Abilify] 15 mg tablet 15 mg PO QPM RF: 0 trazodone 100 mg tablet 200 mg PO HS RF: 0 Discontinued lorazepam [Ativan] 2 mg tablet 2 mg PO .BID UD PRN (Reason: Anxiety) RF: 0 zolpidem [Ambien] 10 mg tablet 15 mg PO HS RF: 0 Discharge Orders: Discharge Order (Routine); Ordered 08/06/20 Ordered By: Micaela Damian/Other Patient Handouts: Anatomy of the Ear, ED External Ear Infection (Adult) Admission Data Admit Date/Time: 08/04/20 21:52 Attending Provider: Hussein Brumfield Admit Provider: Sukhi Lund Primary Care Provider: Gurdeep Duke Other Providers: Gurdeep Brito Emile Other Interventions: Discharge Summary Assessment (RN) Last Done: 08/06/20 14:25 Supervising Physician Co-Signing Physician Notes Attending attestation Pt seen and examined in concert with Dr. Aponte. In agreement with the documented findings as noted in the resident documentation with any exceptions or additions as noted here. 54 y/o female with chronic effusions/otitis w/ new onset left leg weakness, gait dysfunction and speech changes Per patient, much improved today and now at baseline. On examination, S1/S2 nl RRR no MCG. CTAB. Abd NT/ND BS+ve, CN II-XII grossly intact as tested. Bilateral ear canal swelling and erythema with appreciable patency AOE bilaterally with likely mastoiditis resulting in symptoms described - complete course of ciprodex and PO cipro, close follow up with PCP. Neurology does not feel the need for follow up at this time. Fatigue - likely polypharmacy with sedating medications. Decreased Ambien from 15mg to 5mg qHS, encouraged to not double with lorazepam Else see resident documentation as noted. Resident Activity Tracking Resident Involvement: Resident Care Provided Care Provided: Adult Hospital Medicine
[2020-08-06] MEDS: CIPROFLOXACIN 250 MG TAB PO SCH (11:22)
== END 2020-08-06 14:40 | disposition home or self-care (01) ==
LOC: ED 14:00 → 2N 14:00 → SUATTDRO 21:52 → 2N 22:23